=== PATIENT | female | born 1960 | race Hispanic/Latino ===

== ENCOUNTER 2017-01-31 17:22 | Outpatient (CLI) | payer BC ==
--- NOTE | 2017-02-01 08:23 | XRay Report ---
CHEST 2 VIEWS INDICATION: Dry cough, asthma. COMPARISON: 09/13/2009 FINDINGS: PA and lateral chest radiographs demonstrate stable cardiomediastinal silhouette, including aortic arch contour that appears horizontal and somewhat angulated on the lateral view while more end-on on the frontal projection with atherosclerotic calcifications. Clear, well-expanded lungs. Mild multilevel thoracic spine degenerative spurring and slight levocurvature. Upper abdominal, possibly cholecystectomy clips again noted. A catheter-like density in the left upper quadrant may though be new. CONCLUSION: No acute chest process or significant interval change except for a left upper quadrant catheter, as described. Please correlate. Thank you for the opportunity to participate in this patient's care.
--- NOTE | 2017-02-01 08:28 | XRay Report ---
Paranasal sinuses 3 views. History: Dry cough, asthma. Findings: There is opacification of the lower third of each of the maxillary sinuses representing either mucoperiosteal thickening or air-fluid levels. The remaining paranasal sinuses are normal. Impression: Bilateral maxillary sinusitis.
== END 2017-01-31 17:23 | disposition home or self-care (01) ==
LOC: XRAY 17:22
PROVIDERS: ATTEND Surgery Plastic and Reconstructive Surgery
DX: J32.0 Chronic maxillary sinusitis (principal); J45.20 Mild intermittent asthma, uncomplicated
CPT/HCPCS: 70220; 71020

== ENCOUNTER 2017-02-02 11:53 | Outpatient (CLI) | payer BC ==
--- NOTE | 2017-02-02 12:54 | Cat Scan Report ---
CT CHEST WITH CONTRAST: HISTORY: Chronic cough. TECHNIQUE: Helical CT following IV contrast. Sagittal and coronal reformatted images. FINDINGS: Heart size is normal. There is no evidence of adenopathy within the mediastinum. Pulmonary sheron are free of any mass and the lungs are clear of infiltrates. The pleura is unremarkable. No masses involve the chest wall. Calcified granuloma in the lingula is noted. No abnormalities are noted within the upper abdomen. The adrenal glands are normal. A LAP band is partially imaged. IMPRESSION: Unremarkable CT scan of the chest.
== END 2017-02-02 11:54 | disposition home or self-care (01) ==
LOC: CT 11:53
PROVIDERS: ATTEND Family Medicine
DX: J84.10 Pulmonary fibrosis, unspecified (principal); R93.8 Abnormal findings on diagnostic imaging of other specified body structures
CPT/HCPCS: 71260; Q9967

== ENCOUNTER 2017-09-01 10:19 | Emergency (ER) | payer BC ==
[2017-09-01 10:27] VITALS: BP 123/63
--- NOTE | 2017-09-01 11:13 | XRay Report ---
XRAY CHEST TWO VIEWS: 09/01/17 10:19:00 CLINICAL: Cough. COMPARISON: 01/31/17 FINDINGS: Normal heart and pulmonary vasculature.Stable aortic tortuosity and calcification. Lungs are clear except for a basal calcified granulomata. No airspace disease or pleural effusion.Degenerative change in the spine. IMPRESSION: No acute cardiopulmonary process.Old granulomatous disease.
[2017-09-01] MEDS ORDERED: DUONEB *Not for PRN Use IH ONE ×3 (11:16→11:31)
--- NOTE | 2017-09-01 11:32 | Emergency Department Report ---
Minor Respiratory - HPI Chief Complaint: Upper Respiratory Infection Stated Complaint: COUGH Time Seen by Provider: 09/01/17 10:31 Duration: 2 Days Pain Location: Throat, Chest Severity: moderate Minor Respiratory: Yes Rhinorrhea, Yes Sore Throat, Yes Able to Tolerate Fluids , Yes Cough, Yes Sick Contacts, No Ear Pain, No Hemoptysis, No Chest Pain, No Shortness of Breath, No Fever ED Review of Systems ROS: Stated complaint: COUGH Other details as noted in HPI Comment: All other systems reviewed and negative Respiratory: cough, wheezing ED Past Medical Hx - Past Medical History Hx Asthma: Yes - Surgical History Past Surgical History?: Yes Hx Cholecystectomy: Yes Additional Surgical History: TOTAL KNEE LAP BAND - Social History Smoking Status: Former Smoker Substance Use Type: None - Medications Home Medications: Home Medications Medication Instructions Recorded Confirmed Last Taken Type Azithromycin 250 mg PO DAILY #6 tablet 09/01/17 Unknown Rx Hydrocodone/Chlorphen P-Stirex 5 ml PO Q12H PRN #100 ml 09/01/17 Unknown Rx [HYDROcodone-Chlorphen ER Susp] predniSONE [Deltasone] 20 mg PO DAILY #5 tablet 09/01/17 Unknown Rx Minor Respiratory Exam - Exam General: Vital signs noted. No distress. Alert and acting appropriately. HEENT: Yes Moist Mucous Membranes, No Pharyngeal Erythema, No Pharyngeal Exudates, No Rhinorrhea, No Conjuctival Injection, No Frontal Tenderness, No Maxillary Tenderness Ear: Neither TM Bulge, Neither TM Erythema, Neither EAC Pain, Neither EAC Discharge Neck: Yes Supple, No Adenopathy Lungs: Yes Good Air Exchange, Yes Wheezes, Yes Cough, No Ronchi, No Stridor, No Labored Respirations, No Retractions, No Use of Accessory Muscles, No Other Abnormal Lung Sounds Heart: Yes Regular, No Murmur Abdomen: Yes Normal Bowel Sounds, No Tenderness, No Peritoneal Signs Skin: No Rash, No Edema Neurologic: Alert and oriented, no deficits. Musculoskeletal: Unremarkable. ED Course Vital Signs 09/01/17 09/01/17 10:24 11:19 Temperature 98.1 F Pulse Rate 90 Pulse Rate [ 77 Posterior Bilateral Throughout] Respiratory 18 Rate Respiratory 18 Rate [Posterior Bilateral Throughout] Blood Pressure 123/63 O2 Sat by Pulse 100 Oximetry - Reevaluation(s) Reevaluation #1: 09/01/17 11:56 to er w cough hx asthma ? copd in past past smoker non ill non toxic non febrile ambulatory good saturations no sob or cp xray noted duoneb x 2 solumedrol im dc home w dc poc and follow up. ED Medical Decision Making - Radiology Data Radiology results: report reviewed, image reviewed - Medical Decision Making see note - Differential Diagnosis pna v asthma copd ae Critical care attestation.: If time is entered above; I have spent that time in minutes in the direct care of this critically ill patient, excluding procedure time. ED Disposition Clinical Impression: COPD with acute bronchitis Disposition: DC- TO HOME OR SELFCARE Is pt being admited?: No Does the pt Need Aspirin: No Condition: Stable Instructions: Acute Bronchitis (ED) Prescriptions: Azithromycin 250 mg PO DAILY #6 tablet Hydrocodone/Chlorphen P-Stirex [HYDROcodone-Chlorphen ER Susp] 5 ml PO Q12H PRN #100 ml PRN Reason: Cough predniSONE [Deltasone] 20 mg PO DAILY #5 tablet Referrals: PRIMARY CARE, [Primary Care Provider] - 3-5 Days Time of Disposition: 11:28
== END 2017-09-01 11:57 | disposition home or self-care (01) ==
LOC: ED 10:19
DX: J44.9 Chronic obstructive pulmonary disease, unspecified (principal); J20.9 Acute bronchitis, unspecified; J45.909 Unspecified asthma, uncomplicated; Z87.891 Personal history of nicotine dependence
CPT/HCPCS: 71020; 94640; 96374; 99284; J2930

== ENCOUNTER 2018-05-14 12:55 | Outpatient (CLI) | payer BC ==
--- NOTE | 2018-05-14 16:25 | XRay Report ---
XRAYCERVICAL SPINE THREE VIEWS: 05/14/18 12:55:00 CLINICAL: Arthritis and neck pain. FINDINGS: Straightening of the cervical spine. Normal vertebral body height and alignment. Moderate degenerative disc disease with narrowing of the disc spaces and anterior osteophytes at C5-6 and C6-7. Small posterior osteophytes at those levels. Moderate multilevel facet joint disease. No fracture. IMPRESSION: Moderate degenerative disc disease and facet joint disease.
--- NOTE | 2018-05-14 16:37 | XRay Report ---
X-RAY WRIST BILATERAL THREE VIEWS EACH: 05/14/18 CLINICAL: Arthritis. FINDINGS: Right: The carpal bones are intact. No fracture or dislocation. Mild osteoarthritis at the basal joint of the thumb. Mild narrowing of the radiocarpal joint and a small erosion of the lateral distal radius. A tiny erosion at the base of the fifth metacarpal. Normal soft tissues. Left: The carpal bones are intact. No fracture or dislocation. Moderately severe osteoarthritis at the basal joint of the thumb. Mild radiocarpal joint space narrowing and a small erosion of the lateral distal radius. A larger erosion at the base of the fifth metacarpal. IMPRESSION: Mild bilateral radiocarpal joint arthritis and erosions of bilateral distal radius and base of the fifth metacarpal suggestive of early rheumatoid arthritis. 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
== END 2018-05-14 12:56 | disposition home or self-care (01) ==
LOC: SPVIMAG 12:55
PROVIDERS: ATTEND Internal Medicine Pulmonary Disease
DX: M19.032 Primary osteoarthritis, left wrist (principal); M19.031 Primary osteoarthritis, right wrist; M50.323 Other cervical disc degeneration at C6-C7 level; M25.78 Osteophyte, vertebrae; Z87.891 Personal history of nicotine dependence; J45.909 Unspecified asthma, uncomplicated; Z90.710 Acquired absence of both cervix and uterus; Z90.49 Acquired absence of other specified parts of digestive tract
CPT/HCPCS: 72040

== ENCOUNTER 2018-06-08 10:20 | Outpatient (CLI) | payer BC ==
--- NOTE | 2018-06-11 08:55 | Mammography Report ---
BILATERAL DIGITAL SCREENING MAMMOGRAM with CAD: 06/08/18 10:20:00 CLINICAL: Routine screening. COMPARISON:06/09/16 FINDINGS: The breasts are heterogeneously dense, which may obscure small masses. No mass, architectural distortion or suspicious calcifications. IMPRESSION: No mammographic evidence of malignancy. BI-RADS CATEGORY: 1 - - Negative RECOMMENDATION: Routine mammographic screening in one year. COMMENT: Patient follow-up letters are generated by our [employer] application.
== END 2018-06-08 10:21 | disposition home or self-care (01) ==
LOC: SPVWC 10:20
PROVIDERS: ATTEND Surgery
DX: Z12.31 Encounter for screening mammogram for malignant neoplasm of breast (principal); J45.909 Unspecified asthma, uncomplicated; Z90.49 Acquired absence of other specified parts of digestive tract; Z90.710 Acquired absence of both cervix and uterus
CPT/HCPCS: 77067

== ENCOUNTER 2018-10-25 07:23 | Outpatient (CLI) | payer BC ==
--- NOTE | 2018-10-25 11:24 | Vascular Lab Report ---
FINAL REPORT EXAM: VL VENOUS DUPLEX LE BILAT HISTORY: DVT TECHNIQUE: Grayscale and color and spectral Doppler ultrasound imaging of the bilateral lower extrem ities was performed for the purposes of assessing for deep venous thrombosis. PRIORS: None. FINDINGS: No evidence of deep venous thrombosis is seen within the femoral through the posterior tibial and per avendaño veins. Normal compression and color flow is seen throughout the venous system of the bilateral lower extremities. Normal augmentation was seen. IMPRESSION: Negative for bilateral lower extremity deep venous thrombosis.
== END 2018-10-25 07:24 | disposition home or self-care (01) ==
LOC: VAS 07:23
PROVIDERS: ATTEND Internal Medicine Pulmonary Disease
DX: I82.403 Acute embolism and thrombosis of unspecified deep veins of lower extremity, bilateral (principal); J44.9 Chronic obstructive pulmonary disease, unspecified; Z90.710 Acquired absence of both cervix and uterus; Z87.891 Personal history of nicotine dependence; Z90.49 Acquired absence of other specified parts of digestive tract
CPT/HCPCS: 93970

== ENCOUNTER 2019-04-21 09:58 | Emergency (ER) | payer BC ==
--- NOTE | 2019-04-21 10:30 | Emergency Department Report ---
ED Neuro Deficit HPI - General Stated Complaint: POSS STROKE Time Seen by Provider: 04/21/19 10:05 - History of Present Illness Initial Comments: [facility] Date of Service: 04/21/2019 10:03:36 Impression: RO Acute Ischemic Stroke Mechanism of Stroke: Possible Thromboembolic Possible Cardioembolic Small Vessel Disease Metrics: Last Known Well: 04/20/2019 00:00:27 [employer] Notification Time: 04/21/2019 10:02:57 Arrival Time: 04/21/2019 09:58:52 Stamp Time: 04/21/2019 10:03:36 Time First Login Attempt: 04/21/2019 10:07:49 Video Start Time: 04/21/2019 10:07:49 Symptoms: headache NIHSS Start Assessment Time: 04/21/2019 10:22:30 Patient is not a candidate for tPA. Patient was not deemed candidate for tPA thrombolytics because of Last Well Known above 4.[address] head showed no acute hemorrhage or acute core infarct. CT head was reviewed. Advanced imaging CTA head and neck obtained. ER physician notified of the decision on thrombolytics management. Comments: acute onset severe left sided headache with mild right facial asymmetry and ?left leg drift - DDx small stroke vs complicated migraine. Recommend adding CTA head/neck to eval for dissection. Our recommendations are outlined below. Recommendations: * Initiate Aspirin 325 MG Daily * tele * permissive htn Recommended Scan: MRI Head Lipid Panel to Be Obtained, if Not Done in the Last Three Months Therapies: Physical Therapy, Occupational Therapy, Speech Therapy Assessment When Applicable Dysphaghia Screen: Swallow Evaluation, Bedside NPO Until Swallow Evaluation DVT prophylaxis: Lovenox or LMW Heparin Disposition: Follow up with Teleneurology Follow up Sign Out: Discussed with Emergency Department Provider History of Present Illness: Patient is a 58 years old Female. Patient was brought by EMS for symptoms of headache 58 yo woman woke up at approx 0300 with severe L frontal/occipital and orbital headache. She took Tylenol, but it persisted. She has blurry vision in the left eye with excess tearing. She was told at work that she was was not speaking normally. No LOC/convulsion. No focal or lateralizing weakness per the patient, but her co workers noted the left facial droop. EMS noted that her left side developed worsening weakness en route. She takes no blood thinners. CT head showed no acute hemorrhage or acute core infarct. CT head was reviewed. Examination: 1A: Level of Consciousness - Alert; keenly responsive + 0 1B: Ask Month and Age - Both Questions Right + 0 1C: Blink Eyes & Squeeze Hands - Performs Both Tasks + 0 2: Test Horizontal Extraocular Movements - Normal + 0 3: Test Visual Kilpatrick - No Visual Loss + 0 4: Test Facial Palsy (Use Grimace if Obtunded) - Minor paralysis (flat nasolabial fold, smile asymetry) + 1 5A: Test Left Arm Motor Drift - No Drift for 10 Seconds + 0 5B: Test Right Arm Motor Drift - No Drift for 10 Seconds + 0 6A: Test Left Leg Motor Drift - Drift, but doesn't hit bed + 1 6B: Test Right Leg Motor Drift - No Drift for 5 Seconds + 0 7: Test Limb Ataxia (FNF/Heel-Zimmerman) - No Ataxia + 0 8: Test Sensation - Normal; No sensory loss + 0 9: Test Language/Aphasia - Normal; No aphasia + 0 10: Test Dysarthria - Normal + 0 11: Test Extinction/Inattention - No abnormality + 0 NIHSS Score: 2 Patient was informed the Neurology Consult would happen via TeleHealth consult by way of interactive audio and video telecommunications and consented to receiving care in this manner. Due to the immediate potential for life-threatening deterioration due to underlying acute neurologic illness, I spent 35 minutes providing critical care. This time includes time for face to face visit via telemedicine, review of medical records, imaging studies and discussion of findings with providers, the patient and/or family. Dr Hunter [facility] - Related Data Home Medications: Previous Rx's Medication Instructions Recorded Last Taken Type Azithromycin 250 mg PO DAILY #6 tablet 09/01/17 Unknown Rx Hydrocodone/Chlorphen P-Stirex 5 ml PO Q12H PRN #100 ml 09/01/17 Unknown Rx [HYDROcodone-Chlorphen ER Susp] predniSONE [Deltasone] 20 mg PO DAILY #5 tablet 09/01/17 Unknown Rx Allergies/Adverse Reactions: Allergies Allergy/AdvReac Type Severity Reaction Status Date / Time bacitracin Allergy Unknown Verified 09/01/17 10:24 [From Neosporin ([id number])] neomycin Allergy Unknown Verified 09/01/17 10:24 [From Neosporin ([id number])] polymyxin B Allergy Unknown Verified 09/01/17 10:24 [From Neosporin ([id number])] Sulfa (Sulfonamide Allergy Hives Verified 09/01/17 10:24 Antibiotics) ED Review of Systems ROS: Stated complaint: POSS STROKE Other details as noted in HPI ED Past Medical Hx - Past Medical History Hx Asthma: Yes - Surgical History Hx Cholecystectomy: Yes Additional Surgical History: TOTAL KNEE LAP BAND - Social History Smoking Status: Former Smoker Substance Use Type: None - Medications Home Medications: Home Medications Medication Instructions Recorded Confirmed Last Taken Type Azithromycin 250 mg PO DAILY #6 tablet 09/01/17 Unknown Rx Hydrocodone/Chlorphen P-Stirex 5 ml PO Q12H PRN #100 ml 09/01/17 Unknown Rx [HYDROcodone-Chlorphen ER Susp] predniSONE [Deltasone] 20 mg PO DAILY #5 tablet 09/01/17 Unknown Rx ED Neuro Physical Exam - General Suspected Stroke: Yes - NIHSS Assessment Interval: Baseline 1a. Level of Consciousness: alert/keenly responsive 1b. LOC Questions: answers both correctly 1c. LOC Commands: performs tasks correctly 2. Best Gaze: normal 3. Visual: no visual loss 4. Facial Palsy: minor paralysis 5b. Motor Arm Right: no drift 5a. Motor Arm Left: no drift 6a. Motor Leg Left: drift 6b. Motor Leg Right: no drift 7. Limb Ataxia: absent 8. Sensory: normal 9. Best Language: no aphasia 10. Dysarthria: normal 11. Extinction/Inattention: no abnormality Total Score: 2 Stroke Severity: Minor Stroke - Lab Data Lab Results 04/21/19 Range/Units 10:09 POC Glucose 96 (70-105) Critical care attestation.: If time is entered above; I have spent that time in minutes in the direct care of this critically ill patient, excluding procedure time. ED Disposition Clinical Impression: Facial droop Disposition: OP ADMIT IP TO THIS HOSP Is pt being admited?: Yes Condition: Stable
--- NOTE | 2019-04-21 10:47 | Cat Scan Report ---
CT HEAD WITHOUT CONTRAST INDICATION / CLINICAL INFORMATION: neuro deficits <6hrs or sx present upon awakening. Code stroke TECHNIQUE: Axial imaging performed from the skull apex through the skull base without the use of cont rast. Sagittal and coronal reformatted images. All CT scans at this location are performed using CT dose reduction for ALARA by means of automated exposure control. COMPARISON: None available. FINDINGS: CEREBRAL PARENCHYMA: No significant abnormality. No acute territorial infarct. HEMORRHAGE: None. EXTRA-AXIAL SPACES: Normal in size and morphology for the patient's age. VENTRICULAR SYSTEM: Normal in size and morphology for the patient's age. MIDLINE SHIFT OR HERNIATION: None. CEREBELLUM / BRAINSTEM: No significant abnormality. CALVARIUM: No significant abnormality. ORBITS: Normal as visualized. PARANASAL SINUSES / MASTOID AIR CELLS: Normal as visualized. SOFT TISSUES of HEAD: No significant abnormality. ADDITIONAL FINDINGS: None. IMPRESSION: No acute intracranial abnormality. These findings were discussed with Dr. Menjivar in the emergency department at 10[address] [facility] [address] time. Signer Name: Gerard Savage Jr, MD Signed: 04/21/2019 10:42 AM Workstation Name: [id number]
[2019-04-21 11:00] LABS: Basophils % (Auto) 0.6 % (0.0-1.8); Eosinophils % (Auto) 0.8 % (0.0-4.3); Hematocrit 41.3 % (30.3-42.9); Lymphocytes % (Auto) 33.5 % (13.4-35.0); Mean Corpuscular HGB Conc 34 % (30-34); Mean Corpuscular Volume 86 fl (79-97); Monocytes # (Auto) 0.5 K/mm3 (0.0-0.8); Monocytes % (Auto) 7.9 % (0.0-7.3); Platelet Count 241 K/mm3 (140-440); Red Blood Count 4.82 M/mm3 (3.65-5.03); Red Cell Distribution Width 14.6 % (13.2-15.2)
[2019-04-21] MEDS ORDERED: ZOFRAN IV ONE (11:01)
[2019-04-21] MEDS ORDERED: MORPHINE IV ONE (11:01)
[2019-04-21 11:10] LABS: INR 0.99 (0.87-1.13); Partial Thromboplastin Time 27.4 Sec. (24.2-36.6)
[2019-04-21 11:20] LABS: BUN/Creatinine Ratio 18; Blood Urea Nitrogen 14 mg/dL (7-17); Calcium 9.2 mg/dL (8.4-10.2); Hemolysis Index 46
--- NOTE | 2019-04-21 11:20 | Emergency Department Report ---
ED Neuro Deficit HPI - General Stated Complaint: POSS STROKE Time Seen by Provider: 04/21/19 10:05 - History of Present Illness Initial Comments: This is a 58-year-old female who has a history of migraine headache. She states that she has had a prior CT. She's been followed by a neurologist Dr. Delgado. She is currently taking Topamax for headaches and Lexapro for depression. She states that she has never had MR testing due to claustrophobia. She works at the hospital in registration. She complained of retro-orbital bulbar pain on the left which radiated to the occipital area. She stated the pain was somewhat dull in quality. She felt some discomfort in her neck. She vomited once. She does not complain of photophobia. Paramedics state that the patient had no neurological findings on their arrival. However by the time she arrived at the hospital they stated that she had drift of her left arm and an asymmetrical face left side down. Patient was sent for immediate CT scan and examination by telephone neurologist. Upon my encounter she did not complain of any facial weakness, no slurred speech, no sensory change or focal weakness. I had already spoken with the telephone neurologist concerning his findings. He stated the patient is not a candidate for TPA. She has an atypical migraine presentation. -: During the night Place: other (patient herself was unaware of any neurological change) - Related Data Home Medications: Home Medications Medication Instructions Recorded Confirmed Last Taken ALBUTEROL Inhaler (OR & NICU) 2 puff IH QID PRN 04/21/19 04/21/19 Unknown [Proair] Escitalopram [Lexapro] 20 mg PO DAILY 04/21/19 04/21/19 04/21/19 Furosemide [Lasix TAB] 40 mg PO QDAY 04/21/19 04/21/19 04/21/19 Topiramate [Topamax] 200 mg PO BID 04/21/19 04/21/19 04/21/19 Previous Rx's Medication Instructions Recorded Last Taken Type Butalb/Acetaminophen/Caffeine 1 cap PO Q6HR PRN #10 cap 04/21/19 Unknown Rx [Fioricet 50-300-40 mg CAP] Ondansetron [Zofran Odt] 4 mg PO Q6H PRN #7 tab.rapdis 04/21/19 Unknown Rx Allergies/Adverse Reactions: Allergies Allergy/AdvReac Type Severity Reaction Status Date / Time bacitracin Allergy Unknown Verified 09/01/17 10:24 [From Neosporin ([id number])] neomycin Allergy Unknown Verified 09/01/17 10:24 [From Neosporin ([id number])] polymyxin B Allergy Unknown Verified 09/01/17 10:24 [From Neosporin ([id number])] Sulfa (Sulfonamide Allergy Hives Verified 09/01/17 10:24 Antibiotics) ED Review of Systems ROS: Stated complaint: POSS STROKE Other details as noted in HPI Constitutional: denies: chills, fever Eyes: denies: eye pain, eye discharge, vision change ENT: denies: ear pain, throat pain Respiratory: denies: cough, shortness of breath, wheezing Cardiovascular: denies: chest pain, palpitations Endocrine: no symptoms reported Gastrointestinal: denies: abdominal pain, nausea, diarrhea Genitourinary: denies: urgency, dysuria, discharge Musculoskeletal: denies: back pain, joint swelling, arthralgia Skin: denies: rash, lesions Neurological: headache. denies: weakness, paresthesias Psychiatric: denies: anxiety, depression Hematological/Lymphatic: denies: easy bleeding, easy bruising ED Past Medical Hx - Past Medical History Hx Asthma: Yes - Surgical History Hx Cholecystectomy: Yes Additional Surgical History: TOTAL KNEE LAP BAND - Social History Smoking Status: Former Smoker Substance Use Type: None - Medications Home Medications: Home Medications Medication Instructions Recorded Confirmed Last Taken Type ALBUTEROL Inhaler (OR & NICU) 2 puff IH QID PRN 04/21/19 04/21/19 Unknown History [Proair] Butalb/Acetaminophen/Caffeine 1 cap PO Q6HR PRN #10 cap 04/21/19 Unknown Rx [Fioricet 50-300-40 mg CAP] Escitalopram [Lexapro] 20 mg PO DAILY 04/21/19 04/21/19 04/21/19 History Furosemide [Lasix TAB] 40 mg PO QDAY 04/21/19 04/21/19 04/21/19 History Ondansetron [Zofran Odt] 4 mg PO Q6H PRN #7 tab.rapdis 04/21/19 Unknown Rx Topiramate [Topamax] 200 mg PO BID 04/21/19 04/21/19 04/21/19 History ED Neuro Physical Exam - General General appearance: alert, in no apparent distress Suspected Stroke: No - Head Head exam: Present: atraumatic, normocephalic - Eye Eye exam: Present: normal appearance - ENT ENT exam: Present: mucous membranes moist, other (facial asymmetry. Appears somewhat spasmodic and/or voluntary.) - Neck Neck exam: Present: normal inspection. Absent: tenderness, meningismus - Respiratory Respiratory exam: Present: normal lung sounds bilaterally. Absent: respiratory distress - Cardiovascular Cardiovascular Exam: Present: regular rate, normal rhythm. Absent: systolic murmur, diastolic murmur, rubs, gallop - GI/Abdominal GI/Abdominal exam: Present: soft, normal bowel sounds. Absent: distended, tenderness, guarding, rebound, rigid - Extremities Exam Extremities exam: Present: normal inspection - Back Exam Back exam: Present: normal inspection - Neurological Exam Neurological exam: Present: alert, oriented X3, CN II-XII intact. Absent: motor sensory deficit - NIHSS Assessment Interval: Baseline 1a. Level of Consciousness: alert/keenly responsive 1b. LOC Questions: answers both correctly 1c. LOC Commands: performs tasks correctly 2. Best Gaze: normal 3. Visual: no visual loss 4. Facial Palsy: normal symmetrical movement 5b. Motor Arm Right: no drift 5a. Motor Arm Left: no drift 6a. Motor Leg Left: no drift 6b. Motor Leg Right: no drift 7. Limb Ataxia: absent 8. Sensory: normal 9. Best Language: no aphasia 10. Dysarthria: normal 11. Extinction/Inattention: no abnormality Total Score: 0 Stroke Severity: No Stroke Symptoms - Psychiatric Psychiatric exam: Present: normal affect, normal mood - Skin Skin exam: Present: warm, dry, intact, normal color. Absent: rash ED Course Vital Signs 04/21/19 04/21/19 04/21/19 10:30 11:00 11:30 Temperature Pulse Rate 59 L 52 L Respiratory 15 17 Rate Blood Pressure 138/93 125/75 118/68 O2 Sat by Pulse 96 99 98 Oximetry 04/21/19 04/21/19 04/21/19 12:01 12:30 12:52 Temperature 98.4 F Pulse Rate 50 L Respiratory 16 Rate Blood Pressure 112/71 112/71 O2 Sat by Pulse 96 98 Oximetry 04/21/19 13:08 Temperature Pulse Rate Respiratory 16 Rate Blood Pressure O2 Sat by Pulse Oximetry - Reevaluation(s) Reevaluation #1: Discussed with patella neurologist. We will proceed with CT angiographic study which has been delayed due to technical unavailability of the machine. 04/21/19 11:23 Reevaluation #2: Patient again found to have a stroke score of 0. There is no evidence of strok e. Her CT of her head and angiograms revealed no significant abnormality. She did have some focal narrowing of the left vertebral which I think is incidental and unrelated to her headaches. Her headaches have resolved. She is appropriate for outpatient follow-up with her neurologist. 04/21/19 14:25 Reevaluation #3: The patient does not have a facial droop. She does not perceive a facial droop. She does have some grimacing which is symmetrical. She does not have a facial paresis. Her headaches have resolved. 04/21/19 14:27 04/21/19 14:28 - Lab Data Result diagrams: 04/21/19 10:40 04/21/19 10:40 Lab Results 04/21/19 04/21/19 04/21/19 Range/Units 10:09 10:40 10:40 WBC 5.9 (4.5-11.0) K/mm3 RBC 4.82 (3.65-5.03) M/mm3 Hgb 14.0 (10.1-14.3) gm/dl Hct 41.3 (30.3-42.9) % MCV 86 (79-97) fl MCH 29 (28-32) pg MCHC 34 (30-34) % RDW 14.6 (13.2-15.2) % Plt Count 241 (140-440) K/mm3 Lymph % (Auto) 33.5 (13.4-35.0) % [place] % (Auto) 7.9 H (0.0-7.3) % Eos % (Auto) 0.8 (0.0-4.3) % Baso % (Auto) 0.6 (0.0-1.8) % Lymph # 2.0 (1.2-5.4) K/mm3 [place] # 0.5 (0.0-0.8) K/mm3 Eos # 0.0 (0.0-0.4) K/mm3 Baso # 0.0 (0.0-0.1) K/mm3 Seg Neutrophils % 57.2 (40.0-70.0) % Seg Neutrophils # 3.4 (1.8-7.7) K/mm3 PT 12.8 (12.2-14.9) Sec. INR 0.99 (0.87-1.13) APTT 27.4 (24.2-36.6) Sec. Thrombin Time (15.1-19.6) Sec. Sodium (137-145) mmol/L Potassium (3.6-5.0) mmol/L Chloride (98-107) mmol/L Carbon Dioxide (22-30) mmol/L Anion Gap mmol/L BUN (7-17) mg/dL Creatinine (0.7-1.2) mg/dL Estimated GFR ml/min BUN/Creatinine Ratio % Glucose (65-100) mg/dL POC Glucose 96 (70-105) Calcium (8.4-10.2) mg/dL Troponin T (0.00-0.029) ng/mL 04/21/19 04/21/19 Range/Units 10:40 10:40 WBC (4.5-11.0) K/mm3 RBC (3.65-5.03) M/mm3 Hgb (10.1-14.3) gm/dl Hct (30.3-42.9) % MCV (79-97) fl MCH (28-32) pg MCHC (30-34) % RDW (13.2-15.2) % Plt Count (140-440) K/mm3 Lymph % (Auto) (13.4-35.0) % [place] % (Auto) (0.0-7.3) % Eos % (Auto) (0.0-4.3) % Baso % (Auto) (0.0-1.8) % Lymph # (1.2-5.4) K/mm3 [place] # (0.0-0.8) K/mm3 Eos # (0.0-0.4) K/mm3 Baso # (0.0-0.1) K/mm3 Seg Neutrophils % (40.0-70.0) % Seg Neutrophils # (1.8-7.7) K/mm3 PT (12.2-14.9) Sec. INR (0.87-1.13) APTT (24.2-36.6) Sec. Thrombin Time 18.1 (15.1-19.6) Sec. Sodium 146 H (137-145) mmol/L Potassium 4.6 (3.6-5.0) mmol/L Chloride 107.8 H (98-107) mmol/L Carbon Dioxide 27 (22-30) mmol/L Anion Gap 16 mmol/L BUN 14 (7-17) mg/dL Creatinine 0.8 (0.7-1.2) mg/dL Estimated GFR > 60 ml/min BUN/Creatinine Ratio 18 % Glucose 93 (65-100) mg/dL POC Glucose (70-105) Calcium 9.2 (8.4-10.2) mg/dL Troponin T < 0.010 (0.00-0.029) ng/mL - Radiology Data Radiology results: report reviewed (discussed with radiologist. CT the head is read as totally normal) CTA showed incidental focal narrowing of the left vertebral otherwise no acute process on any study. Critical care attestation.: If time is entered above; I have spent that time in minutes in the direct care of this critically ill patient, excluding procedure time. ED Disposition Clinical Impression: Migraine headache Qualifiers: Migraine type: other Status migrainosus presence: without status migrainosus Intractability: not intractable Qualified Code(s): G43.809 - Other migraine, not intractable, without status migrainosus Disposition: DC-01 TO HOME OR SELFCARE Is pt being admited?: No Does the pt Need Aspirin: No Condition: Stable Instructions: Migraine Headache (ED) Additional Instructions: Transferred to the emergency department a further problem or acute change. Follow-up with your neurologist. Prescriptions: Butalb/Acetaminophen/Caffeine [Fioricet 50-300-40 mg CAP] 1 cap PO Q6HR PRN #10 cap PRN Reason: Headache Ondansetron [Zofran Odt] 4 mg PO Q6H PRN #7 tab.rapdis PRN Reason: Nausea Referrals: DENTON DELGADO MD [Staff Physician] - 2-3 Days Time of Disposition: 14:28
--- NOTE | 2019-04-21 11:26 | XRay Report ---
CHEST 1 VIEW INDICATION: hypertension. COMPARISON: Chest x-ray report dated 01/31/2017 FINDINGS: Support devices: None. Heart: Within normal limits. Lungs/Pleura: Minor discoid atelectatic changes are noted in the lower lung zones. No evidence for pn eumonia, pleural effusion or pneumothorax. Additional findings: None. IMPRESSION: Mild atelectatic changes in the lower lung zones. Signer Name: Gerard Savage Jr, MD Signed: 04/21/2019 11:22 AM Workstation Name: [id number]
--- NOTE | 2019-04-21 13:59 | Cat Scan Report ---
CT angio head INDICATION / CLINICAL INFORMATION: 58 years Female; stroke sx. TECHNIQUE: Thin cut axial images obtained through the head during IV bolus contrast administration. S agittal, coronal, and 3 plane MIP reconstructions performed by the technologist. NASCET type criteria used evaluate stenoses. Automated exposure control utilized for radiation reduction purposes. FINDINGS: No priors. No significant narrowing seen in the anterior and posterior circulation. Distal branches of the anterior, middle, and posterior cerebral arteries are fairly symmetric in appe arance and number. No signs of aneurysm. Prior sinus surgery noted. IMPRESSION: No significant narrowing appreciated on this CTA of the head. Signer Name: Boston Lopes MD, III Signed: 04/21/2019 1:55 PM Workstation Name: [id number]
--- NOTE | 2019-04-21 14:11 | Cat Scan Report ---
CT angio neck INDICATION / CLINICAL INFORMATION: 58 years Female; headache neuro sx. TECHNIQUE: Thin cut axial images obtained through the head during IV bolus contrast administration. S agittal, coronal, and 3 plane MIP reconstructions performed by the technologist. NASCET type criteria used evaluate stenoses. All CT scans at this location are performed using CT dose reduction for ALAR A by means of automated exposure control. COMPARISON: None available. FINDINGS: Normal aortic arch branching seen. The common and internal carotid arteries are widely patent. Mild narrowing is seen in the proximal ca rotid canal regions bilaterally, most likely of no clinical significance. Tortuosity of the vessels n oted, which might suggest a history of hypertension-please clinically correlate. Right dominant vertebral system is seen with no significant stenosis appreciated on the right. A few areas of short segment narrowing are suggested in the proximal, nondominant left vertebral artery. Remainder the surrounding soft tissues are grossly normal. Prior sinus surgery suggested. IMPRESSION: Areas of short segment narrowing suggested in the proximal, nondominant left vertebral artery. Signer Name: Boston Lopes MD, III Signed: 04/21/2019 2:07 PM Workstation Name: [id number]
[2019-04-21 15:52] VITALS: BP 120/65
== END 2019-04-21 15:54 | disposition home or self-care (01) ==
LOC: ED 09:58
DX: G43.809 Other migraine, not intractable, without status migrainosus (principal); J45.909 Unspecified asthma, uncomplicated; Z90.49 Acquired absence of other specified parts of digestive tract; Z87.891 Personal history of nicotine dependence; Z79.899 Other long term (current) drug therapy; Z88.2 Allergy status to sulfonamides; Z88.1 Allergy status to other antibiotic agents
CPT/HCPCS: 36415; 70450; 70496; 70498; 71045; 80048; 82962; 84484; 85025; 85610; 85670; 85730; 93005; 93010; 96374; 96375; 99285; J2270; J2405; Q9967

== ENCOUNTER 2019-05-28 08:08 | Outpatient (CLI) | payer BC ==
--- NOTE | 2019-05-28 10:31 | Vascular Lab Report ---
"DUPLEX DOPPLER ULTRASOUND CAROTID, BILATERAL INDICATION: G45.9) BRAIN TIA/R6.09) ABDI. COMPARISON: None available. FINDINGS: RIGHT CAROTID: No significant atherosclerotic plaque. CCA velocity: 104 cm/sec. ICA peak systolic velocity: 93 cm/sec. ICA/CCA PSV Ratio: Less than 1.. Right Vertebral Artery: Antegrade flow. LEFT CAROTID: No significant atherosclerotic plaque. CCA velocity: 99 cm/sec. ICA peak systolic velocity: 89 cm/sec. ICA/CCA PSV Ratio: Less than 1.. Left Vertebral Artery: Antegrade flow. IMPRESSION: 1. Right Internal Carotid Artery: Less than 50% diameter stenosis. 2. Left Internal Carotid Artery: Less than 50% diameter stenosis. Velocity criteria are extrapolated from diameter data as defined by the Society of Radiologists in Ul trasound Consensus Conference, Radiology 2003; 229;340-346. Degree of || ICA PSV || Plaque || ICA/CCA Stenosis (%) || (cm/sec) || estimate (%) || PSV Ratio - Normal...............<125..............None.................<2.0 - <50....................<125..............<50....................<2.0 - 50-69................125-230.........>50....................2.0-4.0 - >70 but <100....>230..............>50....................>4.0 - Near...................High, low, .....visible................variable occlusion or none - Total...................None.............visible;................N/A occlusion no lumen ABDOMINAL AORTIC ULTRASOUND INDICATION: Abdominal aortic aneurysm screening FINDINGS: No relevant prior studies. There is no significant atherosclerotic calcification identified in the abdominal aorta. AP diameter: Proximal abdominal aorta: 2.4 cm Mid abdominal aorta: 2.0 cm Distal abdominal aorta: 2.0 cm Right common iliac artery: 1.3 cm Left common iliac artery: 1.5 cm IMPRESSION: No sonographic evidence of abdominal aortic aneurysm. Common iliac arteries are mildly ectatic. Signer Name: Oliver Patel MD Signed: 05/28/2019 10:27 AM Workstation Name: [id number]"
[2019-05-28] MEDS ORDERED: REGADENOSON 0.4 MG/5 ML INJ IV ONE ×2 (10:55→10:56)
--- NOTE | 2019-05-28 23:45 | Treadmill Report ---
NUCLEAR CARDIAC IMAGING INDICATION FOR PROCEDURE: Chest pain. Informed consent was obtained. Rest and stress nuclear cardiac imaging was performed following the intravenous administration of 10 and 28 mCi of technetium 99m Myoview respectively. Vasodilator stress was achieved with the intravenous administration of 0.4 mg of Lexiscan. Gated SPECT imaging demonstrates a post-stress left ventricular ejection fraction of 76% with normal wall motion. Myocardial perfusion imaging demonstrates no significant cavity change between stress and rest. There is a small mild reversible anterior perfusion defect involving the mid and basal segments of the left ventricle. However, shifting breast shadow attenuation is noted. Nuclear cardiac imaging demonstrates grossly normal post-stress left ventricular systolic function. There is no evidence for myocardial necrosis. A mild degree of anterior ischemia is suspected, but this defect may be artifactual in origin due to shifting breast soft tissue attenuation. If clinically warranted, further evaluation with another imaging modality such as pet mpi or coronary angiography may be appropriate. JOB# [id number] JESSIE/LYN LYMNA
== END 2019-05-28 08:09 | disposition home or self-care (01) ==
LOC: VAS 08:08
PROVIDERS: ATTEND Internal Medicine
DX: I65.23 Occlusion and stenosis of bilateral carotid arteries (principal); J45.909 Unspecified asthma, uncomplicated; Z90.710 Acquired absence of both cervix and uterus
CPT/HCPCS: 78452; 93017; 93306; 93880; A9502; J2785; 76775

== ENCOUNTER 2019-06-12 17:50 | Outpatient (CLI) | payer BC ==
--- NOTE | 2019-06-17 11:24 | Mammography Report ---
DIGITAL SCREENING MAMMOGRAM WITH CAD, 06/12/2019 INDICATION: Routine screening mammography. TECHNIQUE: Digital bilateral 2D mammography was obtained in the craniocaudal and mediolateral obliq ue projections. This examination was interpreted with the benefit of Computer-Aided Detection analysi s. COMPARISON: 06/08/2018 FINDINGS: Breast Density: The breasts are heterogeneously dense, which may obscure small masses. There is no evidence of dominant mass, suspicious calcifications or architectural distortion in eithe r breast. IMPRESSION: No mammographic evidence of malignancy. Follow up recommendation: Routine yearly BI-RADS Category 1: Negative. A "normal" or negative report should not discourage follow up or biopsy of a clinically significant f inding. A written summary of these findings will be mailed to the patient. The patient will be entered into a mammography reporting system which will generate a reminder letter for the patient's next appointmen t at the appropriate interval. The [employer] recommends yearly mammograms starting at age 40 and continuing as l aron as a woman is in good health. Breast MRI is recommended for women with an approximate 20-25% or greater lifetime risk of breast cancer, including women with a strong family history of breast or ova hari cancer or who have been treated for Hodgkin's disease. Signer Name: Newton Fernandes MD Signed: 06/17/2019 11:20 AM Workstation Name: [id number]
== END 2019-06-12 17:51 | disposition home or self-care (01) ==
LOC: SPVWC 17:50
PROVIDERS: ATTEND Surgery
DX: Z12.31 Encounter for screening mammogram for malignant neoplasm of breast (principal); J45.909 Unspecified asthma, uncomplicated; Z90.49 Acquired absence of other specified parts of digestive tract; Z90.710 Acquired absence of both cervix and uterus; Z87.891 Personal history of nicotine dependence
CPT/HCPCS: 77067

== ENCOUNTER 2019-07-21 07:56 | Outpatient (CLI) | payer BC ==
[2019-07-21 08:31] LABS: Chol/HDL Ratio 2.57 %
== END 2019-07-21 07:57 | disposition home or self-care (01) ==
LOC: LAB 07:56
PROVIDERS: ATTEND Psychiatry & Neurology Neurology
DX: E78.00 Pure hypercholesterolemia, unspecified (principal); Z88.1 Allergy status to other antibiotic agents; Z88.8 Allergy status to other drugs, medicaments and biological substances
CPT/HCPCS: 36415; 80061

== ENCOUNTER 2019-10-10 13:05 | Outpatient (CLI) | payer BC ==
--- NOTE | 2019-10-10 14:52 | XRay Report ---
CERVICAL SPINE 6 VIEWS INDICATION: Neck pain. COMPARISON: Cervical spine series from 05/14/2018. FINDINGS: VERTEBRAE: No acute fracture. Normal alignment. DISC SPACES: Moderate discogenic degenerative changes are noted at C5-C6 and C6-C7. FACET JOINTS: Multilevel facet hypertrophy is seen along the lower cervical spine. SOFT TISSUES: No significant abnormality. ADDITIONAL FINDINGS: No additional significant findings. IMPRESSION: 1. No acute findings. 2. Moderate cervical spondylosis. Signer Name: Danny Lynch MD Signed: 10/10/2019 2:48 PM Workstation Name: [id number]
== END 2019-10-10 13:06 | disposition home or self-care (01) ==
LOC: SPVIMAG 13:05
DX: M47.812 Spondylosis without myelopathy or radiculopathy, cervical region (principal)
CPT/HCPCS: 72050

== ENCOUNTER 2019-11-10 08:58 | Inpatient (IN) | payer BC ==
--- NOTE | 2019-11-10 09:29 | Consultation ---
History of Present Illness Consult date: 11/10/19 Medications and Allergies Allergies Allergy/AdvReac Type Severity Reaction Status Date / Time bacitracin Allergy Unknown Verified 09/01/17 10:24 [From Neosporin ([id number])] neomycin Allergy Unknown Verified 09/01/17 10:24 [From Neosporin ([id number])] polymyxin B Allergy Unknown Verified 09/01/17 10:24 [From Neosporin ([id number])] Sulfa (Sulfonamide Allergy Hives Verified 09/01/17 10:24 Antibiotics) Home Medications Medication Instructions Recorded Confirmed Last Taken Type Albuterol INH(or & Nicu Only) 2 puff IH QID PRN 04/21/19 04/21/19 Unknown History [Proair] Butalb/Acetaminophen/Caffeine 1 cap PO Q6HR PRN #10 cap 04/21/19 Unknown Rx [Fioricet 50-300-40 mg CAP] Escitalopram [Lexapro] 20 mg PO DAILY 04/21/19 04/21/19 04/21/19 History Furosemide [Lasix TAB] 40 mg PO QDAY 04/21/19 04/21/19 04/21/19 History Ondansetron [Zofran Odt] 4 mg PO Q6H PRN #7 tab.rapdis 04/21/19 Unknown Rx Topiramate [Topamax] 200 mg PO BID 04/21/19 04/21/19 04/21/19 History Physical Examination - Vital Signs Vital Signs: Vital Signs Temp Pulse Resp BP Pulse Ox 98.6 F 72 18 156/105 96 11/10/19 09:06 11/10/19 09:06 11/10/19 09:06 11/10/19 09:06 11/10/19 09:06 Assessment and Plan [facility] Tele[facility]urology Consult Services Date of Service: 11/10/2019 09:08:30 Impression: Rule Out Acute Ischemic Stroke vs complex migraine Comments/Sign-Out: patient with history of migraine, presents with facial droop, left sided weakness speech impairment, concerning for Acute Ischemic Stroke vs complex migraine. last time known well>4.5 hours therefore not a candidate for IV tPA. also last known well>24 hours therefore urgent CTA not indicated. Mechanism of Stroke: Possible Thromboembolic Possible Cardioembolic Small Vessel Disease Metrics: Last Known Well: 11/08/2019 23:00:00 [facility] Notification Time: 11/10/2019 09:08:06 Arrival Time: 11/10/2019 09:00:00 Stamp Time: 11/10/2019 09:08:30 Time First Login Attempt: 11/10/2019 09:13:48 Video Start Time: 11/10/2019 09:13:48 Symptoms: weakness, slurred speech NIHSS Start Assessment Time: 11/10/2019 09:19:15 Patient is not a candidate for tPA. Patient was not deemed candidate for tPA thrombolytics because of Last Well Known Above 4.5 Hours. Video End Time: 11/10/2019 09:28:51 CT head was reviewed and results were: no hemorrhage in my review Clinical Presentation is not Suggestive of Large Vessel Occlusive Disease, Patient is not a Candidate for Thrombectomy Radiologist was not called back for review of advanced imaging because CTA not ordered ED Physician notified of diagnostic impression and management plan on 11/10/2019 09:30:44 Our recommendations are outlined below. Recommendations: Activate Stroke Protocol Admission/Order Set Stroke/Telemetry Floor Neuro Checks Bedside Swallow Eval DVT Prophylaxis IV Fluids, Normal Saline Head of Bed Below 30 Degrees Euglycemia and Avoid Hyperthermia (PRN Acetaminophen) Antiplatelet Therapy Recommended administer diphenhydramine (Benadryl) 25 mg IV followed by prochlorperazine (Compazine) 10 mg IV, ketorolac (Toradol) 30 mg IV or 60 mg IM. If headache improves same regimen can be repeated every 8 hours. Recommended Scan: MRI Head Without Contrast MRA Head and Neck Without Contrast When Available - Stroke Protocol Echocardiogram - Transthoracic Echocardiogram Lipid Panel to Be Obtained, if Not Done in the Last 30 Days Therapies: Physical Therapy, Occupational Therapy, Speech Therapy Assessment When Applicable Dysphaghia Screen: Swallow Evaluation, Bedside NPO Until Swallow Evaluation DVT prophylaxis: SCDs, Pneumatic Compression Disposition: Follow up with Teleneurology Follow up Sign Out: Discussed with Emergency Department Provider History of Present Illness: Patient is a 59 year old Female. Patient was brought by private transportation with symptoms of weakness, slurred speech with history of migraines and TIA (Apr 2019), depression last known well: 11/08/2019 23:00 presents with headache and facial droop CT head was reviewed. Last seen normal was beyond 4.5 hours of presentation. There is no history of Recent Anticoagulants. There is no history of recent stroke. Examination: Blood Glucose(101) 1A: Level of Consciousness - Alert; keenly responsive + 0 1B: Ask Month and Age - Could Not Answer Either Question Correctly + 2 1C: Blink Eyes & Squeeze Hands - Performs Both Tasks + 0 2: Test Horizontal Extraocular Movements - Normal + 0 3: Test Visual Kilpatrick - No Visual Loss + 0 4: Test Facial Palsy (Use Grimace if Obtunded) - Partial paralysis (lower face) + 2 5A: Test Left Arm Motor Drift - Drift, but doesn't hit bed + 1 5B: Test Right Arm Motor Drift - No Drift for 10 Seconds + 0 6A: Test Left Leg Motor Drift - Drift, but doesn't hit bed + 1 6B: Test Right Leg Motor Drift - No Drift for 5 Seconds + 0 7: Test Limb Ataxia (FNF/Heel-Zimmerman) - No Ataxia + 0 8: Test Sensation - Mild-Moderate Loss: Can Sense Being Touched + 1 9: Test Language/Aphasia - Mild-Moderate Aphasia: Some Obvious Changes, Without Significant Limitation + 1 10: Test Dysarthria - Mild-Moderate Dysarthria: Slurring but can be understood + 1 11: Test Extinction/Inattention - No abnormality + 0 NIHSS Score: 9 Patient was informed the Neurology Consult would happen via TeleHealth consult by way of interactive audio and video telecommunications and consented to receiving care in this manner. Due to the immediate potential for life-threatening deterioration due to underlying acute neurologic illness, I spent 35 minutes providing critical care. This time includes time for face to face visit via telemedicine, review of [facility] records, imaging studies and discussion of findings with providers, the patient and/or family. Dr López [facility] Case [id number]
--- NOTE | 2019-11-10 09:32 | Cat Scan Report ---
CT HEAD WITHOUT CONTRAST INDICATION / CLINICAL INFORMATION: MAIN: neuro deficits <6hrs or sx present upon awakening LEFT FACIAL DROOP X 2 DAYS CODE STROKE 770 [id number] [phone]. TECHNIQUE: All CT scans at this location are performed using CT dose reduction for ALARA by means of automated e xposure control. COMPARISON: Head CT 04/21/2019 FINDINGS: HEMORRHAGE: No evidence of intracranial hemorrhage or extra-axial fluid collection. EXTRA-AXIAL SPACES: Cortical sulci, sylvian fissures and basilar cisterns have an unremarkable appear ance. VENTRICULAR SYSTEM: The ventricular system is of normal size and configuration. CEREBRAL PARENCHYMA: No areas of abnormal brain parenchymal attenuation are identified. There is no i ndication of recent infarction. MIDLINE SHIFT OR HERNIATION: There is no mass effect. CEREBELLUM / BRAINSTEM: Brainstem and cerebellum have an unremarkable appearance. INTRACRANIAL VESSELS:No abnormalities are identified on this noncontrast head CT. ORBITS: visualized portions of the orbits have an unremarkable appearance. SOFT TISSUES of HEAD: No significant abnormality. CALVARIUM: Evaluation of bone windows reveals no abnormalities. PARANASAL SINUSES / MASTOID AIR CELLS: Paranasal sinuses are free from inflammatory mucosal disease. Mastoid air cells are normally pneumatized. Is evidence of prior surgery in the sinonasal cavity stat us post bilateral nasal antral window placement. IMPRESSION: 1. No significant intracranial abnormality on head CT without contrast. No interval change compared t o prior study 04/21/2019. Signer Name: John Pacheco MD Signed: 11/10/2019 9:27 AM Workstation Name: [id number]
[2019-11-10 09:35] LABS: Basophils % (Auto) 0.9 % (0.0-1.8); Eosinophils # (Auto) 0.1 K/mm3 (0.0-0.4); Eosinophils % (Auto) 1.5 % (0.0-4.3); Hemoglobin 14.6 gm/dl (10.1-14.3); Lymphocytes % (Auto) 36.8 % (13.4-35.0); Mean Corpuscular HGB Conc 33 % (30-34); Mean Corpuscular Volume 87 fl (79-97); Monocytes # (Auto) 0.4 K/mm3 (0.0-0.8); Monocytes % (Auto) 8.1 % (0.0-7.3); Platelet Count 238 K/mm3 (140-440); Red Blood Count 5.17 M/mm3 (3.65-5.03); Red Cell Distribution Width 14.4 % (13.2-15.2)
[2019-11-10] MEDS ORDERED: ASPIRIN 81 MG TAB CHEW PO ONE (09:36)
--- NOTE | 2019-11-10 09:36 | Emergency Department Report ---
HPI - General Chief Complaint: Neuro Symptoms/Deficit Time Seen by Provider: 11/10/19 09:17 - HPI HPI: 59-year-old female presents to the emergency department from home with complaint of some left-sided weakness, numbness, facial droop, slurred speech, that is been going on since Sunday evening. Despite the remote last known well time a code stroke was initiated. The patient has a past medical history of migraines, TIA, depression, asthma. She has not taken anything for symptoms prior to presentation. No recent travel or sick contacts at home. She denies any fever, chest pain, cough, shortness of breath. ED Past Medical Hx - Past Medical History Previous Medical History?: Yes Hx Asthma: Yes Additional medical history: Migraines, Depression - Surgical History Past Surgical History?: Yes Hx Cholecystectomy: Yes Additional Surgical History: TOTAL KNEE LAP BAND - Social History Smoking Status: Former Smoker Substance Use Type: None - Medications Home Medications: Home Medications Medication Instructions Recorded Confirmed Last Taken Type Albuterol INH(or & Nicu Only) 2 puff IH QID PRN 04/21/19 04/21/19 Unknown History [Proair] Butalb/Acetaminophen/Caffeine 1 cap PO Q6HR PRN #10 cap 04/21/19 Unknown Rx [Fioricet 50-300-40 mg CAP] Escitalopram [Lexapro] 20 mg PO DAILY 04/21/19 04/21/19 04/21/19 History Furosemide [Lasix TAB] 40 mg PO QDAY 04/21/19 04/21/19 04/21/19 History Ondansetron [Zofran Odt] 4 mg PO Q6H PRN #7 tab.rapdis 04/21/19 Unknown Rx Topiramate [Topamax] 200 mg PO BID 04/21/19 04/21/19 04/21/19 History ED Review of Systems ROS: Stated complaint: HEADACHE Other details as noted in HPI Comment: All other systems reviewed and negative Constitutional: denies: chills, fever Eyes: denies: eye pain, vision change ENT: denies: ear pain, throat pain Respiratory: denies: cough, shortness of breath Cardiovascular: denies: chest pain, palpitations Gastrointestinal: denies: abdominal pain, vomiting Genitourinary: denies: dysuria, discharge Musculoskeletal: denies: back pain, arthralgia Skin: denies: rash, lesions Neurological: headache, weakness, numbness Physical Exam - Physical Exam Vital Signs: Vital Signs 11/10/19 09:06 Temperature 98.6 F Pulse Rate 72 Respiratory 18 Rate Blood Pressure 156/105 [Right] O2 Sat by Pulse 96 Oximetry Physical Exam: GENERAL: The patient is well-developed well-nourished. HENT: Normocephalic. Atraumatic. Patient has moist mucous membranes. EYES: Extraocular motions are intact. Pupils equal reactive to light bilaterally. NECK: Supple. Trachea is midline. CHEST/LUNGS: Clear to auscultation. There is no respiratory distress noted. HEART/CARDIOVASCULAR: Regular. There is no tachycardia. There is no murmur. ABDOMEN: Abdomen is soft, nontender. Patient has normal bowel sounds. SKIN: Skin is warm and dry. NEURO: The patient is awake, alert, and oriented. The patient is cooperative. There is some left upper and lower extremity weakness with drift without hitting the gurney. Subjective decrease sensation to the left side of the face and extremities when compared to the right. No obvious dysarthria but patient has some stuttering speech. MUSCULOSKELETAL: There is no tenderness or deformity. There is no evidence of acute injury. ED Course Vital Signs 11/10/19 09:06 Temperature 98.6 F Pulse Rate 72 Respiratory 18 Rate Blood Pressure 156/105 [Right] O2 Sat by Pulse 96 Oximetry - Consultations Consultation #1: Patient was seen by the telemedicine neurologist, Dr. Lemus, immediately upon her return from CT scan imaging of the head. She was given an NIH stroke scale of 9. However the patient's last known well time was Sunday evening. Since it is currently Sunday morning, the patient is outside the window for TPA or thrombectomy. Therefore she does not need CT angiography of the head and neck at this time. Her symptoms may also be related to a complex migraine. The neurologist recommends admission for further evaluation and stroke work-up. 11/10/19 09:35 ED Medical Decision Making - Lab Data Result diagrams: 11/10/19 09:22 11/10/19 09:22 - EKG Data -: EKG Interpreted by Mo EKG shows normal: sinus rhythm, axis, intervals, QRS complexes (low voltage), ST-T waves Rate: bradycardia (59 bpm) - EKG Data When compared to previous EKG there are: no significant change (05/28/19) Interpretation: unchanged when compared t (05/28/19) - Radiology Data Radiology results: report reviewed CT HEAD WITHOUT CONTRAST INDICATION / CLINICAL INFORMATION: MAIN: neuro deficits <6hrs or sx present upon awakening LEFT FACIAL DROOP X 2 DAYS CODE STROKE [phone]. TECHNIQUE: All CT scans at this location are performed using CT dose reduction for ALARA by means of automated exposure control. COMPARISON: Head CT 04/21/2019 FINDINGS: HEMORRHAGE: No evidence of intracranial hemorrhage or extra- axial fluid collection. EXTRA-AXIAL SPACES: Cortical sulci, sylvian fissures and basilar cisterns have an unremarkable appearance. VENTRICULAR SYSTEM: The ventricular system is of normal size and configuration. CEREBRAL PARENCHYMA: No areas of abnormal brain parenchymal attenuation are identified. There is no indication of recent infarction. MIDLINE SHIFT OR HERNIATION: There is no mass effect. CEREBELLUM / BRAINSTEM: Brainstem and cerebellum have an unremarkable appearance. INTRACRANIAL VESSELS:No abnormalities are identified on this noncontrast head CT. ORBITS: visualized portions of the orbits have an unremarkable appearance. SOFT TISSUES of HEAD: No significant abnormality. CALVARIUM: Evaluation of bone windows reveals no abnormalities. PARANASAL SINUSES / MASTOID AIR CELLS: Paranasal sinuses are free from inflammatory mucosal disease. Mastoid air cells are normally pneumatized. Is evidence of prior surgery in the sinonasal cavity status post bilateral nasal antral window placement. IMPRESSION: 1. No significant intracranial abnormality on head CT without contrast. No interval change compared to prior study 04/21/2019. - Medical Decision Making This patient presents with some left-sided weakness, numbness, facial droop and difficulty with her speech that is been going on since waking up Sunday, which means last known well time was Sunday night. This puts her outside of the window for TPA or thrombectomy. She had a stat CT of the head without contrast that did not show any acute bleed, ischemia, or any other acute process. She was seen by the telemedicine neurologist. Labs have been mostly unremarkable. She was given some Reglan and Toradol for her headache and an aspirin after the negative CT head without contrast. Differential includes CVA, TIA, complex migraine versus other. She will be admitted to the hospital for further evaluation and treatment and was accepted for admission by the hospitalist service. - Differential Diagnosis CVA, TIA, complex migraine, hypoglycemia Critical Care Time: Yes Critical care time in (mins) excluding proc time.: 31 Critical care attestation.: If time is entered above; I have spent that time in minutes in the direct care of this critically ill patient, excluding procedure time. Due to the immediate potential for life-threatening deterioration due to underlying neurologic condition, I spent 31 minutes of critical care time with the patient. Critical care time includes her initial evaluation, multiple re-evaluations, ordering and interpretation of labs and imaging, discussion with the telemedicine neurologist, discussions with the patient. Critical Care Time: 31 minutes ED Disposition Clinical Impression: CVA (cerebral vascular accident) Qualifiers: CVA mechanism: unspecified Qualified Code(s): I63.9 - Cerebral infarction, unspecified Hypertension Qualifiers: Hypertension type: unspecified Qualified Code(s): I10 - Essential (primary) hypertension Disposition: 09 OP ADMIT IP TO THIS HOSP Is pt being admited?: Yes Condition: Serious Time of Disposition: 11:57
[2019-11-10 09:48] LABS: BUN/Creatinine Ratio 25; Blood Urea Nitrogen 20 mg/dL (7-17); Calcium 9.1 mg/dL (8.4-10.2); Hemolysis Index 5
[2019-11-10] MEDS ORDERED: METOCLOPRAMIDE 10 MG/2 ML INJ IV ONE (09:50)
[2019-11-10] MEDS ORDERED: KETOROLAC 30 MG/1 ML INJ IV ONE (09:50)
[2019-11-10 10:07] LABS: INR 0.95 (0.87-1.13)
[2019-11-10 10:08] LABS: Partial Thromboplastin Time 34.5 Sec. (24.2-36.6)
--- NOTE | 2019-11-10 17:11 | History and Physical Report ---
History of Present Illness Date of examination: 11/10/19 Date of admission: 11/10/19 09:56 Chief complaint: Left sided weakness since yesterday AM. History of present illness: 59-year-old female who works at [employer] presents to the emergency department from home with complaint of some left-sided weakness, numbness, facial droop, slurred speech, that is been going on since yesterday morning. Despite the remote last known well time a code stroke was initiated. The patient has a past medical history of migraines, TIA, depression, asthma. She has not taken anything for symptoms prior to presentation. No recent travel or sick contacts at home. She denies any fever, chest pain, cough, shortness of breath.Left sided weakness improved to some extent. Past Medical History Previous Medical History?: Yes Asthma: Yes Additional medical history: Migraines, Depression -Surgical History Past Surgical History?: Yes Cholecystectomy: Yes Additional Surgical History: TOTAL KNEE replacement - Social History Smoking Status: Former Smoker Substance Use Type: None Family history Htn - Medications Home Medications: Home Medications Medication Instructions Recorded Confirmed Last Taken Type Albuterol INH(or & Nicu Only) 2 puff IH QID PRN 04/21/19 04/21/19 Unknown History [Proair] Butalb/Acetaminophen/Caffeine 1 cap PO Q6HR PRN #10 cap 04/21/19 Unknown Rx [Fioricet 50-300-40 mg CAP] Escitalopram [Lexapro] 20 mg PO DAILY 04/21/19 04/21/19 04/21/19 History Furosemide [Lasix TAB] 40 mg PO QDAY 04/21/19 04/21/19 04/21/19 History Ondansetron [Zofran Odt] 4 mg PO Q6H PRN #7 tab.rapdis 04/21/19 Unknown Rx Topiramate [Topamax] 200 mg PO BID 04/21/19 04/21/19 04/21/19 History Review of Systems ROS: Stated complaint: HEADACHE Other details as noted in HPI Comment: All other systems reviewed and negative Constitutional: denies: chills, fever Eyes: denies: eye pain, vision change ENT: denies: ear pain, throat pain Respiratory: denies: cough, shortness of breath Cardiovascular: denies: chest pain, palpitations Gastrointestinal: denies: abdominal pain, vomiting Genitourinary: denies: dysuria, discharge Musculoskeletal: denies: back pain, arthralgia Skin: denies: rash, lesions Neurological: headache, weakness, numbness Medications and Allergies Allergies Allergy/AdvReac Type Severity Reaction Status Date / Time bacitracin Allergy Unknown Verified 09/01/17 10:24 [From Neosporin ([id number])] neomycin Allergy Unknown Verified 09/01/17 10:24 [From Neosporin ([id number]-[id number])] polymyxin B Allergy Unknown Verified 09/01/17 10:24 [From Neosporin ([id number])] Sulfa (Sulfonamide Allergy Hives Verified 09/01/17 10:24 Antibiotics) Home Medications Medication Instructions Recorded Confirmed Last Taken Type Albuterol INH(or & Nicu Only) 2 puff IH QID PRN 04/21/19 11/10/19 Unknown History [Proair] Butalb/Acetaminophen/Caffeine 1 cap PO Q6HR PRN #10 cap 04/21/19 11/10/19 Unknown Rx [Fioricet 50-300-40 mg CAP] Escitalopram [Lexapro] 20 mg PO DAILY 04/21/19 11/10/19 1 Day Ago History ~11/09/19 Furosemide [Lasix TAB] 40 mg PO QDAY 04/21/19 11/10/19 1 Day Ago History ~11/09/19 Topiramate [Topamax] 200 mg PO BID 04/21/19 11/10/19 1 Day Ago History ~11/09/19 Exam - Constitutional Vitals: Temp Pulse Resp BP Pulse Ox 98.2 F 59 L 18 86/47 92 11/10/19 16:29 11/10/19 16:29 11/10/19 16:29 11/10/19 16:29 11/10/19 16:29 General appearance: Present: no acute distress, well-nourished - EENT Eyes: Present: PERRL ENT: hearing intact, clear oral mucosa - Neck Neck: Present: supple, normal ROM - Respiratory Respiratory effort: normal Respiratory: bilateral: CTA - Cardiovascular Heart rate: 78 Rhythm: regular Heart Sounds: Present: S1 & S2. Absent: rub, click - Extremities Extremities: no ischemia, pulses intact, pulses symmetrical, No edema Peripheral Pulses: within normal limits - Abdominal General gastrointestinal: Present: soft, non-tender, non-distended, normal bowel sounds Female genitourinary: Present: normal - Integumentary Integumentary: Present: clear, warm, dry - Musculoskeletal Musculoskeletal: left sided weakness (4/5 weakness in LUE and LLE) - Psychiatric Psychiatric: appropriate mood/affect, intact judgment & insight - Neurologic Neurologic: CNII-XII intact, focal deficits (4/5 power in LUE and LLE and L facial deroop), moves all extremities Results - Labs CBC & Chem 7: 11/10/19 09:22 11/10/19 09:22 Labs: Laboratory Last Values WBC 5.5 K/mm3 (4.5-11.0) 11/10/19 09: RBC 5.17 M/mm3 (3.65-5.03) H 11/10/19 09:22 Hgb 14.6 gm/dl (10.1-14.3) H 11/10/19 09:22 Hct 45.0 % (30.3-42.9) H 11/10/19 09: MCV 87 fl (79-97) 11/10/19 09:22 MCH 28 pg (28-32) 11/10/19 09: MCHC 33 % (30-34) 11/10/19 09:22 RDW 14.4 % (13.2-15.2) 11/10/19 09:22 Plt Count 238 K/mm3 (140-440) 11/10/19 09:22 Lymph % (Auto) 36.8 % (13.4-35.0) H 11/10/19 09:22 Polk % (Auto) 8.1 % (0.0-7.3) H 11/10/19 09:22 Eos % (Auto) 1.5 % (0.0-4.3) 11/10/19 09:22 Baso % (Auto) 0.9 % (0.0-1.8) 11/10/19 09: Lymph # 2.0 K/mm3 (1.2-5.4) 11/10/19 09:22 Polk # 0.4 K/mm3 (0.0-0.8) 11/10/19 09:22 Eos # 0.1 K/mm3 (0.0-0.4) 11/10/19 09:22 Baso # 0.0 K/mm3 (0.0-0.1) 11/10/19 09:22 Seg Neutrophils % 52.7 % (40.0-70.0) 11/10/19 09:22 Seg Neutrophils # 2.9 K/mm3 (1.8-7.7) 11/10/19 09:22 PT 12.8 Sec. (12.2-14.9) 11/10/19 09:22 INR 0.95 (0.87-1.13) 11/10/19 09:22 APTT 34.5 Sec. (24.2-36.6) 11/10/19 09:22 Thrombin Time 18.6 Sec. (15.1-19.6) 11/10/19 09:22 Sodium 140 mmol/L (137-145) 11/10/19 09:22 Potassium 4.3 mmol/L (3.6-5.0) 11/10/19 09:22 Chloride 106.2 mmol/L (98-107) 11/10/19 09:22 Carbon Dioxide 20 mmol/L (22-30) L 11/10/19 09:22 Anion Gap 18 mmol/L 11/10/19 09:22 BUN 20 mg/dL (7-17) H 11/10/19 09:22 Creatinine 0.8 mg/dL (0.7-1.2) 11/10/19 09:22 Estimated GFR > 60 ml/min 11/10/19 09:22 BUN/Creatinine Ratio 25 % 11/10/19 09:22 Glucose 96 mg/dL (65-100) 11/10/19 09:22 POC Glucose 101 (70-105) 11/10/19 09:14 Calcium 9.1 mg/dL (8.4-10.2) 11/10/19 09:22 Troponin T < 0.010 ng/mL (0.00-0.029) 11/10/19 09:22 TSH 5.060 mlU/mL (0.270-4.200) H 11/10/19 10:21 - Imaging and Cardiology EKG: report reviewed (Sinus bradycardia No acute changes) CT Scan - head: report reviewed (NAF) Assessment and Plan Advance Directives: Yes (Full code) VTE prophylaxis?: Chemical Plan of care discussed with patient/family: Yes - Patient Problems (1) Acute CVA (cerebrovascular accident) Current Visit: Yes Status: Acute Plan to address problem: Left sided weakness CVA work up Neuro consult MRI,CDS and ECHO ordered (2) Migraine Current Visit: Yes Status: Inactive Plan to address problem: COnt Topamax and Fioricet (3) Depression Current Visit: Yes Status: Chronic Qualifiers: Depression Type: unspecified Qualified Code(s): F32.9 - Major depressive disorder, single episode, unspecified Plan to address problem: COnt celexa (4) Asthma Current Visit: Yes Status: Inactive Qualifiers: Asthma severity: mild Asthma complication type: unspecified Plan to address problem: Cont Bronchodilators prn (5) DVT prophylaxis Current Visit: Yes Status: Acute Plan to address problem: On Heparin and GI prophylaxis
[2019-11-10] MEDS ORDERED: ACETAMINOPHEN 325 MG TAB PO PRN (17:34)
[2019-11-10] MEDS ORDERED: ONDANSETRON 4 MG/2 ML INJ IV PRN (17:34)
[2019-11-10] MEDS ORDERED: oxyCODONE /ACETAMINOPHEN 5-325MG TAB PO PRN (17:34)
[2019-11-10] MEDS ORDERED: HYDROmorphone 1 MG/1 ML INJ IV PRN (17:34)
[2019-11-10] MEDS ORDERED: ALBUTEROL 8.5 GM INHALATION IH PRN (17:40)
[2019-11-10] MEDS ORDERED: NON-FORMULARY EACH (Butalb/Acetaminophen/Caffeine [Fioricet 50-300-40 Mg Cap] 1 CAP) PO PRN (17:40)
[2019-11-10] MEDS ORDERED: BUTALB/ACETAMINOPHEN/CAFFEINE TAB PO PRN (17:59)
[2019-11-10] MEDS ORDERED: ALBUTEROL 2.5 MG/3 ML NEBU IH PRN (20:03)
[2019-11-10] MEDS: METOPROLOL TARTRATE 25 MG TAB PO SCH (22:00)
[2019-11-10] MEDS: FAMOTIDINE 20 MG/2 ML INJ IV SCH (22:13)
[2019-11-10] MEDS: TOPIRAMATE TAB 200 MG TAB PO SCH (22:13)
[2019-11-11 07:48] LABS: Basophils % (Auto) 0.9 % (0.0-1.8); Eosinophils # (Auto) 0.1 K/mm3 (0.0-0.4); Eosinophils % (Auto) 1.3 % (0.0-4.3); Hematocrit 40.3 % (30.3-42.9); Hemoglobin 13.2 gm/dl (10.1-14.3); Lymphocytes # (Auto) 1.9 K/mm3 (1.2-5.4); Mean Corpuscular HGB Conc 33 % (30-34); Mean Corpuscular Volume 86 fl (79-97); Monocytes # (Auto) 0.4 K/mm3 (0.0-0.8); Monocytes % (Auto) 7.4 % (0.0-7.3); Platelet Count 217 K/mm3 (140-440); Red Blood Count 4.69 M/mm3 (3.65-5.03); Red Cell Distribution Width 14.4 % (13.2-15.2)
[2019-11-11 08:02] LABS: Alanine Aminotransferase 9 units/L (7-56); Albumin 3.4 g/dL (3.9-5); BUN/Creatinine Ratio 32; Blood Urea Nitrogen 19 mg/dL (7-17); Calcium 8.7 mg/dL (8.4-10.2); Chol/HDL Ratio 3.59 %; HDL Cholesterol 42 mg/dL (40-59); Hemolysis Index 4; LDL Cholesterol,Direct 102 mg/dL (50-130)
[2019-11-11] MEDS: FUROSEMIDE 40 MG TAB PO SCH ×2 (08:08→11:04)
[2019-11-11] MEDS: ESCITALOPRAM 10 MG TAB PO SCH ×2 (08:08→11:20)
[2019-11-11] MEDS ORDERED: LORazepam 2 MG/ML VIAL IV NR (08:10)
--- NOTE | 2019-11-11 08:33 | Progress Note ---
Assessment and Plan Assessment and plan: --Acute CVA (cerebrovascular accident) Current Visit: Yes Status: Acute With left sided weakness CVA work up in progress PT OT ST Neurology consulted Aspirin and statin Neuro work-up: CT head without contrast; no significant intracranial abnormality MRI brain; no acute intracranial abnormality Carotid Doppler; less than 50% stenosis bilateral carotid Echocardiogram; CTA neck; CTA head; --Dyslipidemia; statin, low-cholesterol diet -- Migraine headaches Current Visit: Yes Status: Inactive COnt Topamax and Fioricet --H/O Depression Current Visit: Yes Status: Chronic Cont celexa no suicidal thoughts or ideation --History of bronchial asthma/well compensated Current Visit: Yes Status: Inactive Cont Bronchodilators prn --Morbid obesity; BMI 47.1 supportive care, need weight reduction when medically stable. --Possible STEVE CPAP BiPAP at night Patient may need outpatient sleep study to rule out STEVE --DVT prophylaxis Current Visit: Yes Status: Acute Lovenox and GI prophylaxis Monitor closely and adjust the management as needed History Interval history: Patient seen and evaluated this morning at the bedside Patient's chart and other medical records reviewed Admitted with left-sided weakness, stroke protocol initiated Not a candidate for TPA, neuro work-up is in progress Patient complains of left facial and left-sided mild weakness Denies headache or dizziness Vital signs reviewed Hospitalist Physical - Constitutional Vitals: Temp Pulse Resp BP Pulse Ox 98.3 F 64 18 90/51 97 11/11/19 08:13 11/11/19 08:13 11/11/19 08:13 11/11/19 08:13 11/11/19 08:28 General appearance: Present: no acute distress, well-nourished, obese (Morbidly obese) - EENT Eyes: Present: PERRL, EOM intact - Neck Neck: Present: supple, normal ROM - Respiratory Respiratory effort: normal Respiratory: bilateral: diminished, negative: rales, rhonchi, wheezing - Cardiovascular Rhythm: regular Heart Sounds: Present: S1 & S2 - Extremities Extremities: no ischemia, No edema - Abdominal General gastrointestinal: soft, non-tender, non-distended, normal bowel sounds - Integumentary Integumentary: Present: clear, warm - Psychiatric Psychiatric: appropriate mood/affect, cooperative - Neurologic Neurologic: other (CVA with left-sided weakness) Results - Labs CBC & Chem 7: 11/11/19 07:13 11/11/19 07:13 Labs: Laboratory Last Values WBC 5.1 K/mm3 (4.5-11.0) 11/11/19 07:13 RBC 4.69 M/mm3 (3.65-5.03) 11/11/19 07:13 Hgb 13.2 gm/dl (10.1-14.3) 11/11/19 07:13 Hct 40.3 % (30.3-42.9) 11/11/19 07:13 MCV 86 fl (79-97) 11/11/19 07:13 MCH 28 pg (28-32) 11/11/19 07:13 MCHC 33 % (30-34) 11/11/19 07:13 RDW 14.4 % (13.2-15.2) 11/11/19 07:13 Plt Count 217 K/mm3 (140-440) 11/11/19 07:13 Lymph % (Auto) 37.0 % (13.4-35.0) H 11/11/19 07:13 [place] % (Auto) 7.4 % (0.0-7.3) H 11/11/19 07:13 Eos % (Auto) 1.3 % (0.0-4.3) 11/11/19 07:13 Baso % (Auto) 0.9 % (0.0-1.8) 11/11/19 07:13 Lymph # 1.9 K/mm3 (1.2-5.4) 11/11/19 07:13 [place] # 0.4 K/mm3 (0.0-0.8) 11/11/19 07:13 Eos # 0.1 K/mm3 (0.0-0.4) 11/11/19 07:13 Baso # 0.0 K/mm3 (0.0-0.1) 11/11/19 07:13 Seg Neutrophils % 53.4 % (40.0-70.0) 11/11/19 07:13 Seg Neutrophils # 2.7 K/mm3 (1.8-7.7) 11/11/19 07:13 PT 12.8 Sec. (12.2-14.9) 11/10/19 09:22 INR 0.95 (0.87-1.13) 11/10/19 09:22 APTT 34.5 Sec. (24.2-36.6) 11/10/19 09:22 Thrombin Time 18.6 Sec. (15.1-19.6) 11/10/19 09:22 Sodium 144 mmol/L (137-145) 11/11/19 07:13 Potassium 4.1 mmol/L (3.6-5.0) 11/11/19 07:13 Chloride 112.3 mmol/L (98-107) H 11/11/19 07:13 Carbon Dioxide 20 mmol/L (22-30) L 11/11/19 07:13 Anion Gap 16 mmol/L 11/11/19 07:13 BUN 19 mg/dL (7-17) H 11/11/19 07:13 Creatinine 0.6 mg/dL (0.7-1.2) L 11/11/19 07:13 Estimated GFR > 60 ml/min 11/11/19 07:13 BUN/Creatinine Ratio 32 % 11/11/19 07:13 Glucose 88 mg/dL (65-100) 11/11/19 07:13 POC Glucose 84 (70-105) 11/10/19 20:42 Hemoglobin A1c 5.0 % (4-6) 11/11/19 07:13 Calcium 8.7 mg/dL (8.4-10.2) 11/11/19 07:13 Magnesium 2.20 mg/dL (1.7-2.3) 11/10/19 19:15 Total Bilirubin 0.30 mg/dL (0.1-1.2) 11/11/19 07:13 AST 14 units/L (5-40) 11/11/19 07:13 ALT 9 units/L (7-56) 11/11/19 07:13 Alkaline Phosphatase 92 units/L (35-129) 11/11/19 07:13 Troponin T < 0.010 ng/mL (0.00-0.029) 11/10/19 09:22 Total Protein 6.4 g/dL (6.3-8.2) 11/11/19 07:13 Albumin 3.4 g/dL (3.9-5) L 11/11/19 07:13 Albumin/Globulin Ratio 1.1 % 11/11/19 07:13 Triglycerides 111 mg/dL (2-149) 11/11/19 07:13 Cholesterol 151 mg/dL (50-199) 11/11/19 07:13 LDL Cholesterol Direct 102 mg/dL (50-130) 11/11/19 07:13 HDL Cholesterol 42 mg/dL (40-59) 11/11/19 07:13 Cholesterol/HDL Ratio 3.59 % 11/11/19 07:13 TSH 5.060 mlU/mL (0.270-4.200) H 11/10/19 10:21 Active Medications - Current Medications Current Medications: Generic Name Dose Route Start Last Admin Trade Name Freq PRN Reason Stop Dose Admin Acetaminophen 650 mg 11/10/19 17:34 Tylenol PO Q4H PRN Pain MILD(1-3)/Fever >100.5 Acetaminophen/Butalbital/Caffeine 1 tab 11/10/19 17:59 Fioricet PO Q6H PRN Headache Albuterol 2.5 mg 11/10/19 20:03 Proventil IH Q4HRT PRN Shortness Of Breath Atorvastatin Calcium 40 mg 11/10/19 22:00 11/10/19 22:13 Lipitor PO 40 mg QHS VIOLETTE Administration Escitalopram Oxalate 20 mg 11/10/19 18:00 11/11/19 08:08 Lexapro PO Not Given DAILY VIOLETTE Famotidine 20 mg 11/10/19 22:00 11/10/19 22:13 Pepcid IV 20 mg BID VIOLETTE Administration Furosemide 40 mg 11/10/19 18:00 11/11/19 08:08 Lasix PO Not Given QDAY VIOLETTE Hydromorphone HCl 0.5 mg 11/10/19 17:34 Dilaudid IV Q3H PRN Pain , Severe (7-10) Sodium Chloride 250 mls @ 999 mls/hr 11/11/19 08:28 Nacl 0.9% 250ml IV 11/11/19 08:43 ONCE ONE Lorazepam 2 mg 11/11/19 08:10 Ativan IV 11/11/19 10:00 ONCE NR Metoprolol Tartrate 25 mg 11/10/19 22:00 11/10/19 22:00 Metoprolol PO Not Given BID VIOLETTE Ondansetron HCl 4 mg 11/10/19 17:34 Zofran IV Q8H PRN Nausea And Vomiting Oxycodone/Acetaminophen 1 tab 11/10/19 17:34 11/11/19 06:57 Percocet 5/325 PO 1 tab Q6H PRN Administration Pain, Moderate (4-6) Sodium Chloride 10 ml 11/10/19 22:00 11/10/19 22:13 Sodium Chloride Flush Syringe 10 Ml IV 10 ml BID VIOLETTE Administration Sodium Chloride 10 ml 11/10/19 17:34 Sodium Chloride Flush Syringe 10 Ml IV PRN PRN LINE FLUSH Topiramate 200 mg 11/10/19 22:00 11/10/19 22:13 Topamax PO 200 mg BID VIOLETTE Administration
[2019-11-11] MEDS ORDERED: SODIUM CHLORIDE 0.9% 250ML 250 ML IV SCH (09:00)
[2019-11-11] MEDS: METOPROLOL TARTRATE 25 MG TAB PO SCH (11:04)
[2019-11-11] MEDS: ASPIRIN EC 81 MG TAB PO SCH (11:20)
[2019-11-11] MEDS: FAMOTIDINE 20 MG/2 ML INJ IV SCH ×2 (11:21→22:23)
[2019-11-11] MEDS: TOPIRAMATE TAB 200 MG TAB PO SCH ×2 (11:21→22:22)
--- NOTE | 2019-11-11 12:17 | Consultation ---
History of Present Illness Consult date: 11/11/19 Reason for Consult: Left-sided weakness, left facial droop, slurred speech Chief complaint: Left-sided weakness, left facial droop, slurred speech History of present illness: Patient is a 59-year-old woman with a history of migraines, asthma, depression, history of TIA. When waking up in the morning 2 days ago, patient noticed that she had left facial droop, left sided weakness, slurred speech, and decreased sensation on the left side. Patient then came to [facility] the next day. On arrival at [facility], patient was not felt to be a TPA candidate as she was out of the TPA window. She states that her symptoms persist today. Patient reportedly takes aspirin 81 mg a day, and has been compliant with this. She also states that she has been having headaches recently. She denies ever having similar symptoms with headaches or migraines in the past. Past History Past Medical History: other (history of migraines, asthma, depression, history of TIA) Social history: other (Previous history of smoking) Family history: no significant family history Medications and Allergies Allergies Allergy/AdvReac Type Severity Reaction Status Date / Time bacitracin Allergy Unknown Verified 09/01/17 10:24 [From Neosporin ([id number])] neomycin Allergy Unknown Verified 09/01/17 10:24 [From Neosporin ([id number])] polymyxin B Allergy Unknown Verified 09/01/17 10:24 [From Neosporin ([id number])] Sulfa (Sulfonamide Allergy Hives Verified 09/01/17 10:24 Antibiotics) Home Medications Medication Instructions Recorded Confirmed Last Taken Type Albuterol INH(or & Nicu Only) 2 puff IH QID PRN 04/21/19 11/10/19 Unknown History [Proair] Butalb/Acetaminophen/Caffeine 1 cap PO Q6HR PRN #10 cap 04/21/19 11/10/19 Unknown Rx [Fioricet 50-300-40 mg CAP] Escitalopram [Lexapro] 20 mg PO DAILY 04/21/19 11/10/19 1 Day Ago History ~11/09/19 Furosemide [Lasix TAB] 40 mg PO QDAY 04/21/19 11/10/19 1 Day Ago History ~11/09/19 Topiramate [Topamax] 200 mg PO BID 04/21/19 11/10/19 1 Day Ago History ~11/09/19 Active Meds: Active Medications Acetaminophen (Tylenol) 650 mg PO Q4H PRN PRN Reason: Pain MILD(1-3)/Fever >100.5 Acetaminophen/Butalbital/Caffeine (Fioricet) 1 tab PO Q6H PRN PRN Reason: Headache Albuterol (Proventil) 2.5 mg IH Q4HRT PRN PRN Reason: Shortness Of Breath Aspirin (Halfprin Ec) 81 mg PO QDAY [facility] Last Admin: 11/11/19 11:20 Dose: 81 mg Documented by: Atorvastatin Calcium (Lipitor) 40 mg PO QHS [facility] Last Admin: 11/10/19 22:13 Dose: 40 mg Documented by: Escitalopram Oxalate (Lexapro) 20 mg PO DAILY [facility] Last Admin: 11/11/19 11:20 Dose: 20 mg Documented by: Famotidine (Pepcid) 20 mg IV BID [facility] Last Admin: 11/11/19 11:21 Dose: 20 mg Documented by: Furosemide (Lasix) 40 mg PO QDAY [facility] Last Admin: 11/11/19 11:04 Dose: Not Given Documented by: Hydromorphone HCl (Dilaudid) 0.5 mg IV Q3H PRN PRN Reason: Pain , Severe (7-10) Metoprolol Tartrate (Metoprolol) 25 mg PO BID [facility] Last Admin: 11/11/19 11:04 Dose: Not Given Documented by: Ondansetron HCl (Zofran) 4 mg IV Q8H PRN PRN Reason: Nausea And Vomiting Oxycodone/Acetaminophen (Percocet 5/325) 1 tab PO Q6H PRN PRN Reason: Pain, Moderate (4-6) Last Admin: 11/11/19 06:57 Dose: 1 tab Documented by: Sodium Chloride (Sodium Chloride Flush Syringe 10 Ml) 10 ml IV BID [facility] Last Admin: 11/11/19 11:21 Dose: 10 ml Documented by: Sodium Chloride (Sodium Chloride Flush Syringe 10 Ml) 10 ml IV PRN PRN PRN Reason: LINE FLUSH Topiramate (Topamax) 200 mg PO BID [facility] Last Admin: 11/11/19 11:21 Dose: 200 mg Documented by: Review of Systems All systems: negative Neurological: weakness, numbness, migraines, change in speech Physical Examination - Vital Signs Vital Signs: Vital Signs Temp Pulse Resp BP Pulse Ox 98.6 F 72 18 156/105 96 11/10/19 09:06 11/10/19 09:06 11/10/19 09:06 11/10/19 09:06 11/10/19 09:06 - Physical Exam Narrative exam: Patient is alert, awake, oriented x4, follows complex commands. Noted to have dysarthria. PERRL, EOMI, VFF, tongue midline, bilaterally intact to LT, left lower facial weakness noted. 4/5 strength in all LUE/LLE, 5/5 in RUE/RLE. Decreased on Lt. to light touch. Bilaterally intact to FTN and HTS. 2+ reflexes throughout. - Constitutional General appearance: comfortable - EENT EENT: Present: ATNC, PERRL, mucous membranes moist, hearing intact, vision intact - Respiratory Respiratory: Present: lungs clear, normal breath sounds - Cardiovascular Cardiovascular: Present: regular rate, normal S1, normal S2 Extremities: Present: no clubbing, cyanosis, no inflammation - Gastrointestinal Gastrointestinal: Present: normoactive bowel sounds, soft, non-tender - Integumentary Integumentary: Present: normal - Musculoskeletal Musculoskeletal: Present: no fluid collection, no pain - Psychiatric Psychiatric: Present: mood/affect appropriate - Level of Consciousness 1a. Level of Consciousness: alert/keenly responsive - LOC Questions 1b. LOC Questions: answers both correctly - LOC Command 1c. LOC Commands: performs tasks correctly - Best Gaze 2. Best Gaze: normal - Visual 3. Visual: no visual loss - Facial Palsy 4. Facial Palsy: minor paralysis - Motor Arm 5a. Motor Arm Left: drift 5b. Motor Arm Right: no drift - Motor Leg 6a. Motor Leg Left: drift 6b. Motor Leg Right: no drift - Limb Ataxia 7. Limb Ataxia: absent - Sensory 8. Sensory: mild/moderate sensory loss - Best Language 9. Best Language: no aphasia - Dysarthria 10. Dysarthria: mild/moderate dysarthria - Extinction and Inattention 11. Extinction/Inattention: no abnormality - Scoring Total Score: 5 Stroke Severity: Moderate Stroke Results - Laboratory Findings CBC and BMP: 11/11/19 07:13 11/11/19 07:13 Abnormal Lab Findings: Abnormal Labs 11/10/19 11/10/19 11/10/19 09:22 09:22 10:21 RBC 5.17 H Hgb 14.6 H Hct 45.0 H Lymph % (Auto) 36.8 H [place] % (Auto) 8.1 H Chloride Carbon Dioxide 20 L BUN 20 H Creatinine Albumin TSH 5.060 H 11/11/19 11/11/19 07:13 07:13 RBC Hgb Hct Lymph % (Auto) 37.0 H [place] % (Auto) 7.4 H Chloride 112.3 H Carbon Dioxide 20 L BUN 19 H Creatinine 0.6 L Albumin 3.4 L TSH Assessment and Plan Patient is a 59-year-old woman with a history of migraines, asthma, depression, history of TIA, who presents with left facial droop, left-sided weakness, and slurred speech. According patient's clinical findings, it is likely that she has had an acute ischemic stroke. Plan: 1. Stroke: - MRI brain: Pending - CTA head/neck: Pending - CT head: No acute abnormality - Echo: Pending - Cont. ASA - Cont. statin. LDL goal <70. LDL 102. - Telemetry monitoring while in house - PT/OT/ST - DVT Ppx: Recommend lovenox 2. Hypertension: - Recommend BP goal of normotension, as it has been more than 48 hours since symptom onset. - Will continue to monitor patient. Thank you for allowing me to take part in the care of this patient. Ha Ceballos MD Neurology
--- NOTE | 2019-11-11 12:47 | Vascular Lab Report ---
"DUPLEX DOPPLER ULTRASOUND CAROTID, BILATERAL INDICATION: Left facial droop, slurred speech. FINDINGS: RIGHT CAROTID: Mild plaque Right CCA velocity: 136 cm/sec. Right ICA peak systolic velocity: 105 cm/sec. ICA/CCA PSV Ratio: 0.8. Right Vertebral Artery: Antegrade flow. LEFT CAROTID: Mild plaque Left CCA velocity: 92 cm/sec. Left ICA peak systolic velocity: 85 cm/sec. ICA/CCA PSV Ratio: 0.9. Left Vertebral Artery: Antegrade flow. IMPRESSION: 1. Right Internal Carotid Artery: Less than 50% diameter stenosis. 2. Left Internal Carotid Artery: Less than 50% diameter stenosis. Velocity criteria are extrapolated from diameter data as defined by the Society of Radiologists in Ul trasound Consensus Conference, Radiology 2003; 229;340-346. Degree of Stenosis (%) || ICA PSV (cm/sec) || Plaque estimate (%) || ICA/CCA PSV Ratio Normal <125 None <2.0 <50 <125 <50 <2.0 50-69 125-230 50 2.0-4.0 70 but less than 100 >230 50 >4.0 Near occlusion High, low, or none visible variable Total occlusion None visible; no lumen N/A Signer Name: Christiano Kidd MD Signed: 11/11/2019 12:42 PM Workstation Name: [id number]"
[2019-11-11] MEDS ORDERED: LORazepam 2 MG/ML VIAL IV ONE (13:59)
--- NOTE | 2019-11-11 15:48 | Magnetic Resonance Report ---
MRI BRAIN WITHOUT CONTRAST INDICATION / CLINICAL INFORMATION: MAIN: stroke, weakness. TECHNIQUE: Multisequence, multiplanar images were obtained. COMPARISON: CT head dated 11/10/2019 FINDINGS: CEREBRAL and CEREBELLAR HEMISPHERES: No evidence of mass or mass effect. No midline shift. No acute hemorrhage. No diffusion restriction to suggest acute infarct. No extra-axial fluid collection. VENTRICLES: Normal in size and configuration for age. VISUALIZED ORBITS: No significant abnormality. VISUALIZED PARANASAL SINUSES: No significant abnormality. ADDITIONAL FINDINGS: None. IMPRESSION: 1. No acute intracranial abnormality. Signer Name: Gerard Savage Jr, MD Signed: 11/11/2019 3:43 PM Workstation Name: [id number]
[2019-11-11] MEDS ORDERED: ENOXAPARIN 40 MG/0.4 ML INJ SUB-Q SCH (22:00)
[2019-11-12] MEDS: ESCITALOPRAM 10 MG TAB PO SCH (09:15)
[2019-11-12] MEDS: ASPIRIN EC 81 MG TAB PO SCH (09:15)
[2019-11-12] MEDS: TOPIRAMATE TAB 200 MG TAB PO SCH (09:16)
[2019-11-12] MEDS: FAMOTIDINE 20 MG/2 ML INJ IV SCH (09:16)
[2019-11-12] MEDS: FUROSEMIDE 40 MG TAB PO SCH (09:16)
--- NOTE | 2019-11-12 13:52 | Progress Note ---
Assessment and Plan Patient is a 59-year-old woman with a history of migraines, asthma, depression, history of TIA, who presents with left facial droop, left-sided weakness, and slurred speech. According patient's clinical findings, it is likely that she has conversion disorder. To support this diagnosis, the patient does not have any imaging evidence of infarct on MRI. Further the patient is noted to have distractible symptoms, which are not consistent with stroke. Patient also endorses significant stressors recently in her personal life. Plan: 1. Conversion disorder: - MRI brain: No acute abnormality. -Carotid ultrasound: No significant stenosis. - CT head: No acute abnormality - Echo: EF 55 to 60%, left atrium normal size, bubble study negative. - Cont. ASA - Cont. statin. LDL goal <70. LDL 102. - Telemetry monitoring while in house - PT/OT/ST - DVT Ppx: Recommend lovenox -Recommend for patient to follow-up with psychiatry as outpatient. She states that she had previously been seen by psychiatrist for her anxiety and depression, however had not been able to follow-up as the physician moved away from the area. 2. Blood pressure: - Recommend BP goal of normotension, as it has been more than 48 hours since symptom onset. - Will sign off. Please call with any questions. Thank you for allowing me to take part in the care of this patient. Ha Ceballos MD Neurology Subjective Date of service: 11/12/19 Principal diagnosis: Conversion disorder Interval history: No acute events overnight. Objective - Exam Narrative Exam: Patient is alert, awake, oriented x4, follows complex commands. No aphasia or dysarthria noted. PERRL, EOMI, VFF, tongue midline, bilaterally intact to LT, left lower facial weakness which is noted to have distractibility. /5 strength in all LUE, 4/5 in LLE which is noted to be distractible, 5/5 in RUE/RLE. Decreased on Lt. to light touch. Bilaterally intact to FTN and HTS. 2+ reflexes throughout. - Vital Sign Vital Signs - 12hr 11/12/19 11/12/19 11/12/19 03:56 05:00 08:08 Temperature 97.6 F 97.5 F L Pulse Rate 57 L 66 Pulse Rate [ Apical] Respiratory 18 18 Rate Blood Pressure 91/55 96/63 O2 Sat by Pulse 97 Oximetry 11/12/19 08:18 Temperature Pulse Rate Pulse Rate [ 60 Apical] Respiratory 18 Rate Blood Pressure O2 Sat by Pulse 98 Oximetry - General Apperance Constitutional: comfortable - EENT EENT: ATNC, PERRL, mucous membranes moist, hearing intact, vision intact - Respiratory Respiratory: lungs clear, normal breath sounds - Cardiovascular Cardiovascular: regular rate, normal S1, normal S2 Extremities: no clubbing, cyanosis, no inflammation - Gastrointestinal Gastrointestinal: normoactive bowel sounds, soft, non-tender - Integumentary Integumentary: normal - Musculoskeletal Musculoskeletal: no fluid collection, no pain - Psychiatric Psychiatric: mood/affect appropriate - Laboratory Findings CBC and BMP: 11/11/19 07:13 11/11/19 07:13 Abnormal Lab Findings: Abnormal Labs 11/10/19 11/10/19 11/10/19 09:22 09:22 10:21 RBC 5.17 H Hgb 14.6 H Hct 45.0 H Lymph % (Auto) 36.8 H [place] % (Auto) 8.1 H Chloride Carbon Dioxide 20 L BUN 20 H Creatinine Albumin TSH 5.060 H 11/11/19 11/11/19 07:13 07:13 RBC Hgb Hct Lymph % (Auto) 37.0 H [place] % (Auto) 7.4 H Chloride 112.3 H Carbon Dioxide 20 L BUN 19 H Creatinine 0.6 L Albumin 3.4 L TSH
--- NOTE | 2019-11-12 14:59 | Discharge Summary ---
Providers - Providers Date of Admission: 11/11/19 18:45 Date of discharge: 11/12/19 Attending physician: ATIYA MCFARLAND 11/10/19 17:34 Consult to Physician [CONS] Routine Comment: Consulting Provider: RIGOBERTO COOK Physician Instructions: Reason For Exam: Acute CVA 11/10/19 17:37 Occupational Therapy Evaluate and Treat [CONS] Routine Comment: Reason For Exam: Neuro deficits Physical Therapy Evaluation and Treat [CONS] Routine Comment: Reason For Exam: Neuro deficits 11/11/19 16:07 Speech Therapy Evaluation and Treat [CONS] Routine Reason For Exam: Acute CVA Primary care physician: ANANTH ALVAREZ MD Hospitalization Condition: Good Pertinent studies: Neuro work-up: Negative CT head without contrast; no significant intracranial abnormality MRI brain; no acute intracranial abnormality Carotid Doppler; less than 50% stenosis bilateral carotid Echocardiogram; EF 55 to 60% CTA neck; no acute abnormality CTA head; no acute abnormality Hospital course: --Acute CVA (cerebrovascular accident) ruled out Current Visit: Yes Status: Acute Symptoms completely resolved Complete neuro work-up: Is negative CT head without contrast; no significant intracranial abnormality MRI brain; no acute intracranial abnormality Carotid Doppler; less than 50% stenosis bilateral carotid Echocardiogram; EF within normal limits CTA neck; no acute abnormality CTA head; no acute abnormality Acute CVA/TIA ruled out Neurology feels, it is a conversion disorder. --Conversion disorder;[per neuro] Neurology recommend outpatient psychiatrist/psychology evaluation --Dyslipidemia; low-cholesterol diet -- Migraine headaches Current Visit: Yes Status: Inactive COnt Topamax and Fioricet --H/O Depression Current Visit: Yes Status: Chronic Cont celexa no suicidal thoughts or ideation --History of bronchial asthma/well compensated Current Visit: Yes Status: Inactive Cont Bronchodilators prn --Morbid obesity; BMI 47.1 supportive care, need weight reduction when medically stable. --Possible STEVE CPAP BiPAP at night Patient may need outpatient sleep study to rule out STEVE --DVT prophylaxis Current Visit: Yes Status: Acute Lovenox and GI prophylaxis Monitor closely and adjust the management as needed Cleared by neurology Stable at discharge Disposition: DC-01 TO HOME OR SELFCARE Time spent for discharge: 32 min Core Measure Documentation - Palliative Care Palliative Care/ Comfort Measures: Not Applicable - Core Measures Any of the following diagnoses?: none Exam - Constitutional Vitals: Temp Pulse Resp BP Pulse Ox 97.5 F L 60 18 96/63 98 11/12/19 08:08 11/12/19 08:18 11/12/19 08:18 11/12/19 08:08 11/12/19 08:18 General appearance: Present: no acute distress, well-nourished - EENT Eyes: Present: PERRL, EOM intact - Neck Neck: Present: supple, normal ROM - Respiratory Respiratory effort: normal Respiratory: bilateral: diminished, negative: rales, rhonchi, wheezing - Cardiovascular Rhythm: regular Heart Sounds: Present: S1 & S2 - Extremities Extremities: no ischemia, No edema - Abdominal General gastrointestinal: Present: soft, non-tender, non-distended, normal bowel sounds - Integumentary Integumentary: Present: clear, warm - Musculoskeletal Musculoskeletal: strength equal bilaterally - Psychiatric Psychiatric: appropriate mood/affect, cooperative - Neurologic Neurologic: moves all extremities Plan Activity: advance as tolerated Diet: other (Cardiac diet) Additional Instructions: 2 days work excuse on 11/13/2019, 11/14/2019. May return to work on 11/15/2019 if stable. Follow-up private neurologist in 1 week. Advised to follow with private software developer consultant per schedule. Patient advised to see private psychiatrist/[facility] in 3 to 5 days[rec by neurology] Follow up with: PRIMARY MD UMANG [Referring] - 3-5 Days JASS COOK MD [Staff Physician] - 7 Days Forms: Work/School Release Form Other Discharge Orders: Physicial Therapy (Amb) Location: None Selected
[2019-11-12 15:49] VITALS: BP 112/67
--- NOTE | 2019-11-12 17:22 | Cat Scan Report ---
CTA neck with and without contrast CLINICAL HISTORY: Cerebrovascular accident. Technique: Multiple contiguous postcontrast axial CT images of the neck were obtained at 0.63 mm inte rvals. 3 plane MIP reconstructions were produced. Precontrast localizing images were also performed. All CT scans at this location are performed using the CT dose reduction for ALARA by means of automat ed exposure control. FINDINGS: There is developmental tortuosity of the carotid arteries bilaterally at. However, there is no significant stenosis involving the carotid arteries by NASCET criteria from the previous CTA of . 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 The right vertebral artery remains dominant without significant focal stenosis from the prior study. The arch of vessels appear unremar kable. IMPRESSION: There is no developing of significant stenosis involving the carotid arteries by NASCET criteria from 04/21/2019. 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 Signer Name: Praveen Hinds MD Signed: 11/12/2019 5:17 PM Workstation Name: [id number]
--- NOTE | 2019-11-12 17:31 | Cat Scan Report ---
CTA head with intravenous contrast CLINICAL HISTORY: stroke TECHNIQUE: 0.625 mm thick contiguous axial scans were obtained from the skull base to the skull vertex during ra pid bolus administration of intravenous contrast material. Multiplanar reconstructions were produced in the coronal and sagittal planes. In addition 3 plane MIP instructions were produced and reviewed f or this report. The axial source images and reconstructed images were reviewed for this report. All CT scans at this location are performed using CT dose reduction for ALARA by means of automated e xposure control. FINDINGS: The caliber of the intracranial vessels is normal throughout. There is no indication of intracranial stenosis or large vessel occlusion. There is no indication of vasculitis. There is no evidence of aneurysm or other vascular malformation. The dural venous sinuses are well demonstrated on this study. There is no indication of dural sinus t hrombosis. IMPRESSION: 1. No abnormality identified on CTA head. CONTRAST DOSE REPORT: Omnipaque 350: 100 ml administered intravenously. Signer Name: John Pacheco MD Signed: 11/12/2019 5:27 PM Workstation Name: [id number]
[2019-11-12] MEDS ORDERED: FAMOTIDINE 20 MG TAB PO SCH (22:00)
== END 2019-11-12 18:10 | disposition home or self-care (01) | DRG 880 ==
LOC: ED 08:58 → 4A 09:56 → OBSVTOIN 11-11 18:45
PROVIDERS: ADMIT Internal Medicine; ATTEND Internal Medicine
DX: F44.4 Conversion disorder with motor symptom or deficit (principal); Z68.42 Body mass index [BMI] 45.0-49.9, adult; I10 Essential (primary) hypertension; G43.909 Migraine, unspecified, not intractable, without status migrainosus; J45.909 Unspecified asthma, uncomplicated; F32.9 Major depressive disorder, single episode, unspecified; F17.210 Nicotine dependence, cigarettes, uncomplicated; E66.01 Morbid (severe) obesity due to excess calories; Z88.1 Allergy status to other antibiotic agents; Z88.2 Allergy status to sulfonamides; Z88.8 Allergy status to other drugs, medicaments and biological substances; Z79.51 Long term (current) use of inhaled steroids; Z79.899 Other long term (current) drug therapy; Z86.73 Personal history of transient ischemic attack (TIA), and cerebral infarction without residual deficits; Z82.49 Family history of ischemic heart disease and other diseases of the circulatory system; Z71.6 Tobacco abuse counseling
CPT/HCPCS: 36415; 70450; 70496; 70498; 70551; 80048; 80053; 80061; 82962; 83036; 83735; 84443; 84484; 85025; 85610; 85670; 85730; 93005; 93010; 93306; 93880; 99406; G0378; A9270-GY; J1650; J1885; J2060; J2765; J7050; Q9967

== ENCOUNTER 2020-07-01 11:50 | Outpatient (CLI) | payer BC ==
--- NOTE | 2020-07-01 16:26 | Mammography Report ---
DIGITAL SCREENING MAMMOGRAM WITH CAD, 07/01/2020 INDICATION: Routine screening mammography. TECHNIQUE: Digital bilateral 2D mammography was obtained in the craniocaudal and mediolateral obliq ue projections. This examination was interpreted with the benefit of Computer-Aided Detection analysi s. COMPARISON: 06/12/2019 and 06/08/2018 FINDINGS: Breast Density: The breasts are heterogeneously dense, which may obscure small masses. There is no evidence of dominant mass, suspicious calcifications or architectural distortion in eithe r breast. IMPRESSION: Follow up recommendation: Routine yearly BI-RADS Category 1: Negative. A "normal" or negative report should not discourage follow up or biopsy of a clinically significant f inding. A written summary of these findings will be mailed to the patient. The patient will be entered into a mammography reporting system which will generate a reminder letter for the patient's next appointmen t at the appropriate interval. The [employer] recommends yearly mammograms starting at age 40 and continuing as l aron as a woman is in good health. Breast MRI is recommended for women with an approximate 20-25% or greater lifetime risk of breast cancer, including women with a strong family history of breast or ova hari cancer or who have been treated for Hodgkin's disease. Signer Name: Christiano Kidd MD Signed: 07/01/2020 4:21 PM Workstation Name: [id number]
== END 2020-07-01 11:51 | disposition home or self-care (01) ==
LOC: SPVWC 11:50
PROVIDERS: ATTEND Surgery
DX: Z12.31 Encounter for screening mammogram for malignant neoplasm of breast (principal)
CPT/HCPCS: 77067

== ENCOUNTER 2020-07-06 08:44 | Day surgery (SDC) | payer BC ==
[2020-07-06] MEDS ORDERED: SODIUM CHLORIDE 0.9% 1000 ML 1,000 ML ONE (08:55)
[2020-07-06] MEDS ORDERED: SODIUM CHLORIDE 0.9% 1000 ML 1,000 ML IV SCH (09:15)
--- NOTE | 2020-07-06 10:01 | Anesthesia Consultation ---
Anesthesia Consult and Med Hx Date of service: 07/06/20 - Airway Anesthetic Teeth Evaluation: Good ROM Head & Neck: Adequate Mental/Hyoid Distance: Adequate Mallampati Class: Class II Intubation Access Assessment: Probably Good - Pre-Operative Health Status ASA Pre-Surgery Classification: ASA3 Proposed Anesthetic Plan: MAC - Pulmonary Hx Smoking: Yes (1-2 Cigs/Day) Hx Asthma: Yes Hx Respiratory Symptoms: No SOB: No COPD: Yes Home Oxygen Therapy: No Hx Pneumonia: No Hx Sleep Apnea: Yes - Cardiovascular System Hx Hypertension: No Hx Coronary Artery Disease: No Hx Heart Attack/AMI: No Hx Angina: No Hx Percutaneous Transluminal Coronary Angioplasty (PTCA): No Hx Cardia Arrhythmia: No Hx Pacemaker: No Hx Internal Defibrillator: No Hx Valvular Heart Disease: No Hx Heart Murmur: No Hx Peripheral Vascular Disease: Yes (Vericose) - Central Nervous System Hx Neuromuscular Disorder: No Hx Seizures: No CVA: Yes (2 TIAs) Hx Back Pain: No Hx Psychiatric Problems: Yes (Depression) - Gastrointestinal Hx Ulcer: No Hx Gastroesophageal Reflux Disease: Yes - Endocrine Hx Renal Disease: Yes (stones) Hx End Stage Renal Disease: No Hx Cirrhosis: No Hx Liver Disease: No Hx Insulin Dependent Diabetes: No Hx Non-Insulin Dependent Diabetes: No Hx Thyroid Disease: No Hx Hypothyroidism: No Hx Hyperthyroidism: No - Hematic Hx Anemia: No Hx Sickle Cell Disease: No - Other Systems Hx Alcohol Use: Yes (occ.) Hx Substance Use: No Hx Cancer: Yes (cerival ) Hx Obesity: Yes
--- NOTE | 2020-07-06 10:02 | Anesthesia Day of Surgery ---
Anesthesia Day of Surgery - Day of Surgery Patient Examined: Yes Patient H&P Reviewed: Yes Patient is NPO: Yes
[2020-07-06] MEDS ORDERED: propofoL 200 MG/20 ML VIAL IV ONE ×2 (10:58→11:17)
[2020-07-06] MEDS ORDERED: LIDOCAINE MPF (2%) 20 MG/1 ML VIAL 5 ML ONE (10:58)
--- NOTE | 2020-07-06 11:30 | Short Stay Summary ---
Short Stay Documentation Date of service: 07/06/20 - History H&P: obtained from office - Allergies and Medications Current Medications: Allergies bacitracin [From Neosporin ([id number])] Allergy (Verified 09/01/17 10:24) Unknown neomycin [From Neosporin ([id number]-lzi-[id number])] Allergy (Verified 02/11/20 08:32) Unknown skin blisters Penicillins Allergy (Verified 02/11/20 08:24) Hives polymyxin B [From Neosporin ([id number])] Allergy (Verified 09/01/17 10:24) Unknown prednisone Allergy (Verified 02/11/20 08:32) Hives Sulfa (Sulfonamide Antibiotics) Allergy (Verified 09/01/17 10:24) Hives Home Medications Medication Instructions Recorded Confirmed Last Taken Type Albuterol Mdi (or & Nicu Only) 2 puff IH QID PRN 04/21/19 02/11/20 Unknown History [ProAir HFA Inhaler] Butalb/Acetaminophen/Caffeine 1 cap PO Q6HR PRN #10 cap 04/21/19 02/11/20 Unknown Rx [Fioricet 50-300-40 mg CAP] Escitalopram [Lexapro] 20 mg PO DAILY 04/21/19 02/11/20 02/10/20 History Furosemide [Lasix TAB] 40 mg PO QDAY 04/21/19 02/11/20 02/10/20 History Topiramate [Topamax] 200 mg PO BID 04/21/19 02/11/20 02/10/20 History Aspirin [Adult Aspirin] 81 mg PO DAILY 02/11/20 02/11/20 02/11/20 07:15 History traMADoL [Ultram] 50 mg PO BID 02/11/20 02/11/20 Unknown History Active Medications Sodium Chloride (Nacl 0.9% 1000 Ml) 1,000 mls @ 50 mls/hr IV DIRECT VIOLETTE Last Admin: 07/06/20 10:58 Dose: 50 mls/hr Documented by: - Brief post op/procedure progress note Date of procedure: 07/06/20 Pre-op diagnosis: Screening colonoscopy Post-op diagnosis: other (Colonic diverticulosis) Procedure: Colonoscopy Anesthesia: MAC Findings: 1. Mild scattered diverticulosis 2. Otherwise normal colonoscopy. Surgeon: DEREK WILSON Estimated blood loss: none Pathology: none Condition: stable - Disposition Condition at discharge: Good Disposition: DC-01 TO HOME OR SELFCARE Short Stay Discharge Plan Diet: regular Follow up with: ANANTH ALVAREZ MD [Primary Care Provider] - 7 Days
[2020-07-06 13:14] VITALS: BP 101/62
--- NOTE | 2020-07-06 13:27 | Post Anesthesia Evaluation ---
- Post Anesthesia Evaluation Patient Participated: Yes Airway Patent: Yes Stable Respiratory Function: Yes Nausea/Vomiting: No Temp > 96.8F: Yes Pain Manageable: Yes Adequeate Hydration: Yes Anesthesia Complications: No
--- NOTE | 2020-07-06 13:55 | Operative Report ---
COLONOSCOPY REPORT PROCEDURE: Colonoscopy. PREOPERATIVE DIAGNOSIS: Screening. POSTOPERATIVE DIAGNOSIS: Mild colonic diverticulosis. SEDATION: MAC by Anesthesia. HISTORY: The patient is a 60-year-old woman who presents for screening colonoscopy. DESCRIPTION OF PROCEDURE: Indications, risks, and benefits were explained and consent was obtained. The patient was placed in left lateral decubitus position and sedated. Video colonoscope was passed through the rectum after digital examination and passed with minimal difficulty to the cecum, which was identified by the ileocecal valve and the appendiceal orifice. Scope was then gradually withdrawn with close inspection of the mucosa. Prep was good. FINDINGS: 1. Mild scattered diverticulosis noted throughout the colon. 2. Remainder of visualized colonic mucosa is otherwise normal appearing with no evidence of mass lesions, vascular lesions or inflammation. The patient tolerated the procedure well without immediate complications. IMPRESSION: 1. Diverticulosis. 2. Otherwise, normal colonoscopy. PLAN: 1. High-fiber diet. 2. Repeat colonoscopy in 10 years. JOB# [id number] HR[facility]/NTS
== END 2020-07-06 08:45 | disposition home or self-care (01) ==
LOC: GIO 08:44
PROVIDERS: ATTEND Internal Medicine Gastroenterology
DX: K59.00 Constipation, unspecified (principal); R19.7 Diarrhea, unspecified; K57.30 Diverticulosis of large intestine without perforation or abscess without bleeding; I10 Essential (primary) hypertension; G43.909 Migraine, unspecified, not intractable, without status migrainosus; F32.9 Major depressive disorder, single episode, unspecified; J44.9 Chronic obstructive pulmonary disease, unspecified; K21.9 Gastro-esophageal reflux disease without esophagitis; G47.30 Sleep apnea, unspecified; E66.9 Obesity, unspecified; F41.9 Anxiety disorder, unspecified; M19.90 Unspecified osteoarthritis, unspecified site; F17.210 Nicotine dependence, cigarettes, uncomplicated; Z90.710 Acquired absence of both cervix and uterus; Z90.49 Acquired absence of other specified parts of digestive tract; Z72.89 Other problems related to lifestyle; Z98.890 Other specified postprocedural states; Z88.8 Allergy status to other drugs, medicaments and biological substances; Z88.2 Allergy status to sulfonamides; Z88.0 Allergy status to penicillin; Z79.899 Other long term (current) drug therapy; Z79.82 Long term (current) use of aspirin; Z96.651 Presence of right artificial knee joint; Z68.42 Body mass index [BMI] 45.0-49.9, adult; Z86.73 Personal history of transient ischemic attack (TIA), and cerebral infarction without residual deficits
CPT/HCPCS: 45378; J2704; J7030

== ENCOUNTER 2022-01-16 07:29 | Outpatient (CLI) | payer BC ==
--- NOTE | 2022-01-16 09:14 | Fluoroscopy Report ---
UPPER GI HISTORY: Z98.84 BARIATRIC SURGERY K30 FUNCTIONAL DYSPEPSIA. TECHNIQUE: Single and double contrast barium technique utilized to evaluate the esophagus, stomach, and duodenal C-loop. FINDINGS: To begin the exam, swallowing was evaluated in the lateral position under direct fluorosco py. Swallowing was normal. The esophagus is normal caliber and mucosal pattern throughout. Occasional tertiary contractions were witnessed consistent with mild esophageal dysmotility. No hiatal hernia or reflux was witnessed duri ng this exam. A lap band device appears in good position in the left upper quadrant. No evidence for slippage or er osions. There is easy passage of the contrast agent through the lap band device. The gastric cavity a nd duodenal sweep are unremarkable. No evidence for mucosal defect or ulceration. No obstruction. IMPRESSION: 1. Overall unremarkable appearance of the lap band device. 2. Mild esophageal dysmotility. 3. No evidence for hiatal hernia or reflux during this exam. Fluoroscopic time: 3.0 minutes Number of fluoroscopic images: 55 Signer Name: Gerard Savage Jr, MD Signed: 01/16/2022 9:10 AM Workstation Name: [id number]
== END 2022-01-16 07:30 | disposition home or self-care (01) ==
LOC: FLUORO 07:29
PROVIDERS: ATTEND Surgery
DX: K22.89 Other specified disease of esophagus (principal); K30 Functional dyspepsia; Z98.84 Bariatric surgery status
CPT/HCPCS: 74246

== ENCOUNTER 2022-01-24 06:28 | Day surgery (SDC) | payer BC ==
[2022-01-24] MEDS ORDERED: WATER FOR IRRIG STERILE 1,000 ML BOTTLE ONE (06:32)
[2022-01-24] MEDS ORDERED: WATER FOR IRRIG STERILE 250 ML BOTTLE IR ONE (06:32)
[2022-01-24] MEDS ORDERED: SODIUM CHLORIDE 0.9% 1000 ML 1,000 ML IV SCH (07:00)
[2022-01-24] MEDS ORDERED: LIDOCAINE MPF (2%) 20 MG/1 ML VIAL 5 ML ONE (07:12)
[2022-01-24] MEDS ORDERED: propofoL 200 MG/20 ML VIAL IV ONE ×2 (07:12)
--- NOTE | 2022-01-24 07:36 | Anesthesia Day of Surgery ---
Anesthesia Day of Surgery - Day of Surgery Patient Examined: Yes Patient H&P Reviewed: Yes Patient is NPO: Yes
--- NOTE | 2022-01-24 07:37 | Anesthesia Consultation ---
Anesthesia Consult and Med Hx Date of service: 01/24/22 - Airway Anesthetic Teeth Evaluation: Good ROM Head & Neck: Adequate Mental/Hyoid Distance: Adequate Mallampati Class: Class II Intubation Access Assessment: Good - Pulmonary Exam CTA: Yes - Cardiac Exam Cardiac Exam: RRR - Pre-Operative Health Status ASA Pre-Surgery Classification: ASA3 Proposed Anesthetic Plan: MAC - Pulmonary Hx Smoking: Yes (1-2 Cigs/Day) Hx Asthma: Yes Hx Respiratory Symptoms: No SOB: No COPD: Yes Hx Pneumonia: No Hx Sleep Apnea: Yes - Cardiovascular System Hx Hypertension: Yes Hx Coronary Artery Disease: No Hx Heart Attack/AMI: No Hx Angina: No Hx Percutaneous Transluminal Coronary Angioplasty (PTCA): No Hx Cardia Arrhythmia: No Hx Pacemaker: No Hx Internal Defibrillator: No Hx Valvular Heart Disease: No Hx Heart Murmur: No Hx Peripheral Vascular Disease: Yes (Vericose) - Central Nervous System Hx Neuromuscular Disorder: No Hx Seizures: No CVA: Yes (2 TIAs) Hx Back Pain: No Hx Psychiatric Problems: Yes (Depression) - Gastrointestinal Hx Ulcer: No Hx Gastroesophageal Reflux Disease: Yes - Endocrine Hx Renal Disease: Yes (stones) Hx End Stage Renal Disease: No Hx Cirrhosis: No Hx Liver Disease: No Hx Insulin Dependent Diabetes: No Hx Non-Insulin Dependent Diabetes: No Hx Thyroid Disease: No Hx Hypothyroidism: No Hx Hyperthyroidism: No - Hematic Hx Anemia: No Hx Sickle Cell Disease: No - Other Systems Hx Alcohol Use: Yes (occ.) Hx Substance Use: No Hx Cancer: Yes (CERVICAL) Hx Obesity: Yes
--- NOTE | 2022-01-24 08:05 | Operative Report ---
Operative Report Operative Report: DATE: 01/24/2022 SURGERY: Upper endoscopy. SURGEON: Tere Bach M.D. PROCEDURE: EGD with biopsy PRE OP DX: morbid obesity, GERD, hx of gastric banding POST OP DX: morbid obesity, GERD, hx of gastric banding TYPE OF ANESTHESIA: MAC. ESTIMATED BLOOD LOSS: None. COMPLICATIONS: None. SPECIMENS REMOVED: antral biopsy FINDINGS: 1. Normal banded gastric anatomy 2. gastritis INDICATIONS:INDICATION FOR PROCEDURE: Patient is a 61-year-old female with a long history of morbid obesity. He has a hx of gastric banding and increased reflux. He is having EGD to evaluate his stomach anatomy prior to planning switching to another bariatric procedure. PROCEDURE DETAILS: After consent was reviewed, patient was taken back to the operating room where patient was placed in the left lateral decubitus position and a bite block was placed in the mouth. After a time-out was called, MAC anesthesia was initiated. I then passed the endoscope into his oropharynx, into her esophagus, visualized the entire esophagus, which was all within normal limits. Z-line was noted to about 35cm from incisors. There was an expected proximal stomach narrowing from external compression from the gastric band. I then visualized the stomach and the first portion of the duodenum and there were no abnormalities I could clearly visualize. A cold forceps biopsy of the antrum was taken and will be sent to pathology to evaluate for H.pylori. I then retroflexed the scope in the stomach and visualized the underside of the band. There were no signs of band erosion or malposition. I then desufflated the stomach and removed the endoscope. Patient tolerated procedure well and was transferred to recovery room in good and stable condition.
--- NOTE | 2022-01-24 08:05 | Discharge Summary ---
Providers - Providers Date of Admission: 01/24/2022 Date of discharge: 01/24/22 Attending physician: BRIT HAMMOND MD Primary care physician: ANANTH ALVAREZ MD Hospitalization Reason for admission: pre-op egd Condition: Good Procedures: egd with bx Hospital course: Pt presented for a pre-op EGD as part of planning for up coming bariatric surgery. Procedure was uneventful and pt recovered well and was discharged to home. Disposition: 01 HOME / SELF CARE / HOMELESS Final Discharge Diagnosis (Prints w/discharge instructions): hx of gastric banding, morbid obesity, dyspepsia Core Measure Documentation - Palliative Care Palliative Care/ Comfort Measures: Not Applicable - Core Measures Any of the following diagnoses?: none Exam - Physical Exam Narrative exam: unchanged from pre-op - Constitutional Vitals: Temp Pulse Resp BP Pulse Ox 98.8 F 68 13 102/57 98 01/24/22 07:00 01/24/22 07:00 01/24/22 07:00 01/24/22 07:00 01/24/22 07:00 Plan Activity: advance as tolerated Diet: low carbohydrate Follow up with: ANANTH ALVAREZ MD [Primary Care Provider] - 7 Days
[2022-01-24 15:33] VITALS: BP 129/62
== END 2022-01-24 12:25 | disposition home or self-care (01) ==
LOC: GIO 06:28
PROVIDERS: ATTEND Surgery
DX: K21.9 Gastro-esophageal reflux disease without esophagitis (principal); E66.01 Morbid (severe) obesity due to excess calories; K29.50 Unspecified chronic gastritis without bleeding; B96.81 Helicobacter pylori [H. pylori] as the cause of diseases classified elsewhere; I10 Essential (primary) hypertension; F32.9 Major depressive disorder, single episode, unspecified; G43.909 Migraine, unspecified, not intractable, without status migrainosus; J44.9 Chronic obstructive pulmonary disease, unspecified; G47.30 Sleep apnea, unspecified; Z90.710 Acquired absence of both cervix and uterus; Z87.19 Personal history of other diseases of the digestive system; Z88.0 Allergy status to penicillin; Z88.8 Allergy status to other drugs, medicaments and biological substances; Z79.899 Other long term (current) drug therapy; Z88.2 Allergy status to sulfonamides; Z98.890 Other specified postprocedural states; Z90.49 Acquired absence of other specified parts of digestive tract; Z68.43 Body mass index [BMI] 50.0-59.9, adult; Z86.73 Personal history of transient ischemic attack (TIA), and cerebral infarction without residual deficits
CPT/HCPCS: 43239; 88305; J2704; J7030

== ENCOUNTER 2022-02-13 16:42 | Outpatient (CLI) | payer BC ==
[2022-02-13 17:16] LABS: Basophils # (Auto) 0.1 K/mm3 (0.0-0.1); Basophils % (Auto) 1.3 % (0.0-1.8); Eosinophils # (Auto) 0.1 K/mm3 (0.0-0.4); Eosinophils % (Auto) 1.4 % (0.0-4.3); Hematocrit 46.2 % (30.3-42.9); Hemoglobin 15.1 gm/dl (10.1-14.3); Lymphocytes # (Auto) 2.3 K/mm3 (1.2-5.4); Lymphocytes % (Auto) 34.6 % (13.4-35.0); Mean Corpuscular HGB Conc 33 % (30-34); Mean Corpuscular Volume 86 fl (79-97); Monocytes # (Auto) 0.6 K/mm3 (0.0-0.8); Monocytes % (Auto) 9.2 % (0.0-7.3); Platelet Count 274 K/mm3 (140-440); Red Blood Count 5.39 M/mm3 (3.65-5.03); Red Cell Distribution Width 14.8 % (13.2-15.2)
[2022-02-13 17:27] LABS: INR 0.97 (0.87-1.13)
[2022-02-13 17:32] LABS: % Iron Saturation 15.67 %; Alanine Aminotransferase 28 units/L (7-56); Albumin 4.4 g/dL (3.9-5); BUN/Creatinine Ratio 20; Blood Urea Nitrogen 16 mg/dL (7-17); Calcium 9.4 mg/dL (8.4-10.2); HDL Cholesterol 61 mg/dL (40-59); Hemolysis Index 15; Iron 42 ug/dL (37-170); LDL Cholesterol,Direct 135 mg/dL (50-130); Total Iron Binding Capacity 268 mcg/dL (250-450)
== END 2022-02-13 16:43 | disposition home or self-care (01) ==
LOC: LAB 16:42
PROVIDERS: ATTEND Surgery
DX: Z13.21 Encounter for screening for nutritional disorder (principal); Z13.29 Encounter for screening for other suspected endocrine disorder; K30 Functional dyspepsia; E66.01 Morbid (severe) obesity due to excess calories; E11.9 Type 2 diabetes mellitus without complications; K90.9 Intestinal malabsorption, unspecified; E55.9 Vitamin D deficiency, unspecified; Z98.84 Bariatric surgery status
CPT/HCPCS: 80053; 80061; 82306; 82607; 82728; 83036; 83550; 84425; 84443; 85025; 85610

== ENCOUNTER 2022-04-07 06:48 | Outpatient (CLI) | payer BC ==
[2022-04-07] MEDS ORDERED: REGADENOSON 0.4 MG/5 ML INJ IV ONE (10:36)
[2022-04-07] MEDS ORDERED: ACETAMINOPHEN 500 MG TAB PO NR (10:50)
[2022-04-07] MEDS ORDERED: ACETAMINOPHEN 500 MG TAB ONE (10:58)
--- NOTE | 2022-04-08 05:43 | Treadmill Report ---
DATE OF SERVICE: 04/07/2022 REFERRING PHYSICIAN: Dr. Enoch Lund PROTOCOL: The patient was assessed in postoperative state, given 10 mCi of technetium at rest. The patient had rest imaging. The patient underwent Lexiscan stress test per standard protocol. At peak stress, the patient given 26 mCi technetium. Shortly thereafter, the patient had stress imaging. Raw imaging reveals significant GI artifact, no significant motion artifact. Technically somewhat difficult study due to GI artifact. SPECT imaging examined carefully in horizontal long axis, vertical long axis, short axis views. Grossly, probably normal study. The inferior wall is partially obscured by GI artifact, but probably normal without evidence of significant degree of ischemia or prior infarction. Normal left ventricular systolic performance without evidence of TID, calculated ejection fraction of 61%. CONCLUSIONS: 1. Technically difficult study due to GI artifact partially obscuring the inferior wall, but grossly probably normal without evidence of significant degree of prior infarction or active ischemia. 2. Normal left ventricular systolic performance without evidence of transient ischemic dilatation or stress-induced segmental wall motion abnormalities. TID: [id number] RECEIPT: [id number] [facility]/
== END 2022-04-07 06:49 | disposition home or self-care (01) ==
LOC: ECHO 06:48
PROVIDERS: ATTEND Internal Medicine
DX: I49.3 Ventricular premature depolarization (principal); I49.1 Atrial premature depolarization; I69.30 Unspecified sequelae of cerebral infarction; R06.09 Other forms of dyspnea; Z82.49 Family history of ischemic heart disease and other diseases of the circulatory system; Z86.69 Personal history of other diseases of the nervous system and sense organs
CPT/HCPCS: 78452; 93017; A9502; C8929; J2785; 93306

== ENCOUNTER 2022-05-30 15:51 | Outpatient (CLI) | payer BC ==
[2022-05-30 17:05] LABS: Alanine Aminotransferase 11 units/L (7-56); Albumin 4.5 g/dL (3.9-5); Chol/HDL Ratio 3.22 %; HDL Cholesterol 58 mg/dL (40-59); LDL Cholesterol,Direct 114 mg/dL (50-130)
[2022-05-30 17:06] LABS: Bilirubin,Direct < 0.2 mg/dL (0-0.2)
[2022-05-30 17:16] LABS: Free T4 (Free Thyroxine) 1.06 ng/dL (0.76-1.46)
== END 2022-05-30 15:52 | disposition home or self-care (01) ==
LOC: LAB 15:51
PROVIDERS: ATTEND Internal Medicine
DX: R94.5 Abnormal results of liver function studies (principal); R94.6 Abnormal results of thyroid function studies; E78.5 Hyperlipidemia, unspecified
CPT/HCPCS: 36415; 80061; 80076; 84439; 84443